=== PATIENT | male | born 1960 | race Caucasian/White ===

== ENCOUNTER → 2016-08-08 | Outpatient (CLI) | payer MEDICAID ==
[~2016-08-08] MED LIST: ALBUTEROL0.09 MG/A2 INH; AMLODIPINE BESYL5 MG PO; AMOXICILLIN500 M2 PO; AMOXICILLIN500 MG PO; ANAPROX DS550 MG PO; ANUSOL-HC25 MG RC; ASPIRIN81 M1 PO; ASPRIN PO; AUGMENTIN 875 M1 TAB PO; BP MED; CLARITIN-D 12 H1 TAB PO; COLACE100 MG PO; COUMADIN5 M2 PO; CYCLOBENZAPRINE5 M3 PO; DILTIAZEM120 MG PO; DILTIAZEM240 M1 PO; DILTIAZEM30 MG PO; FLEXERIL10 MG PO; HYDROCODONE BIT1 T11 PO; IMDUR SA60 M1 PO; IMDUR30 MG PO; KEFLEX500 M1 PO; KENALOG 0.5% OI15 GM PO; LISINOPRIL HCTZ1 TA1 PO; LISINOPRIL HCTZ1 TAB PO; LISINOPRIL10 MG PO; MEDROL DOSEPAK4 MG PO; MIDRIN (DURADR1 CAP PO; MOTRIN800 MG PO; NAPROSYN500 MG PO; NEXIUM20 MG PO; NITROSTAT0.4 MG SL; NKHM; PERCOCET 325 MG1 TA2 PO; PREDNICOT20 MG PO; PREDNISONE20 MG PO; PRILOSEC40 M1 PO; PROCTOFOAM 1%10 G1 PO; PROVENTIL0.09 MG/AC INH; RANEXA500 MG PO; SIMVASTATIN20 MG PO; SIMVASTATIN40 MG PO; TESSALON PERLE100 M1 PO; TESSALON PERLE200 MG PO; VIBRAMYCIN100 MG PO; VICODIN 5/500 505 MG PO; VICODIN ES 7501 TAB PO; VISTARIL25 M2 PO; VITAMIN D-32000 UNI1 PO; ZITHROMAX Z PA250 MG PO; ZOCOR20 MG PO
== END | disposition home or self-care (01) ==
LOC: RAD 15:48
DX: I10 Essential (primary) hypertension (principal); Z72.0 Tobacco use

== ENCOUNTER 2016-08-19 19:18 | Emergency (ER) | payer MEDICAID ==
[~2016-08-19] VITALS: Ht 177.8 cm; Wt 52.2 kg
[2016-08-19] MEDS ORDERED: IMDUR SA60 MG PO (19:23)
[2016-08-19] MEDS ORDERED: NAPROSYN500 MG PO (19:26)
== END 2016-08-19 19:57 | disposition home or self-care (01) ==
LOC: ED 19:18
DX: M79.641 Pain in right hand (principal); R03.0 Elevated blood-pressure reading, without diagnosis of hypertension; F17.200 Nicotine dependence, unspecified, uncomplicated; I10 Essential (primary) hypertension; E78.5 Hyperlipidemia, unspecified; F41.9 Anxiety disorder, unspecified; I25.10 Atherosclerotic heart disease of native coronary artery without angina pectoris; F32.9 Major depressive disorder, single episode, unspecified; I25.2 Old myocardial infarction; Z79.82 Long term (current) use of aspirin

== ENCOUNTER → 2016-08-29 | Outpatient (CLI) | payer MEDICAID ==
[~2016-08-29] MED LIST changes: +IMDUR SA60 MG PO; +VITAMIN D5000 UNI1 PO
--- NOTE | ~2016-08-29 | ST ---
[place], [place] EXERCISE STRESS TEST REPORT NAME: SARA CHERRY UNIT #: [id number] ROOM: DOCTOR: MIRNA STEVENS MD BIRTHDATE: [birth year] DOS: 08/29/2016 INDICATIONS: Precordial chest pain. PHARMACOLOGICAL STRESS TEST: The patient was given Lexiscan 0.4 mg over 10 seconds followed by nuclear injection at 40 seconds followed by 2 minutes of recovery. Test was terminated due to completion. Performance baseline heart rate was 64, blood pressure 154/86. At 2 minutes, heart rate was 88, blood pressure 154/72. EKG response baseline normal sinus rhythm. Stress EKG, no ST changes. CLINICAL RESPONSE: Warm feeling and nausea and headache. INTERPRETATION: 1. Negative Lexiscan stress test. 2. Wait for Cardiolite images for full report. MIRNA STEVENS MD CM:STRESS:EXERCISE STRESS TEST REPORT [id number] MIRNA STEVENS MD
== END | disposition home or self-care (01) ==
LOC: CARD 02:59
DX: R07.2 Precordial pain (principal); R53.81 Other malaise

== ENCOUNTER 2016-10-25 13:04 | Emergency (ER) | payer OTHER ==
[~2016-10-25] VITALS: Ht 177.8 cm; Wt 56.7 kg
[2016-10-25] MEDS ORDERED: CLEOCIN150 MG PO (13:24)
== END 2016-10-25 13:35 | disposition home or self-care (01) ==
LOC: ED 13:04
DX: K04.7 Periapical abscess without sinus (principal); F17.200 Nicotine dependence, unspecified, uncomplicated; I25.10 Atherosclerotic heart disease of native coronary artery without angina pectoris; J44.9 Chronic obstructive pulmonary disease, unspecified; E78.5 Hyperlipidemia, unspecified; I10 Essential (primary) hypertension; I25.2 Old myocardial infarction; E55.9 Vitamin D deficiency, unspecified; Z98.890 Other specified postprocedural states; Z79.82 Long term (current) use of aspirin; Z79.899 Other long term (current) drug therapy

== ENCOUNTER 2016-11-29 05:31 | Emergency (ER) | payer OTHER ==
[~2016-11-29] VITALS: Wt 56.7 kg
[~2016-11-29 05:31] MED LIST changes: +CLEOCIN150 MG PO
[2016-11-29 06:19] LABS: BASO % 0.5 % (0.0-1.0); EOS # 0.2 10*3/uL (0.0-0.4); EOS % 3.3 % (1.0-4.0); HEMATOCRIT 40.8 % (42.0-52.0); HEMOGLOBIN 13.7 g/dl (14.0-18.0); LYMPH # 1.9 10*3/uL (1.3-4.4); LYMPH % 28.9 % (27.0-41.0); MEAN CELL VOLUME 92.3 fl (80.0-94.0); MEAN CORPUSCULAR HGB CONC 33.6 g/dl (33.0-37.0); MEAN PLATELET VOLUME 9.3 fl (9.6-12.3); MONO # 0.6 10*3/uL (0.1-1.0); MONO % 9.5 % (3.0-9.0); NEUT # 3.8 10*3/uL (2.3-7.9); NEUT % 57.6 % (47.0-73.0); PLATELET COUNT AUTOMATED 217 10*3/uL (130-400); RED BLOOD COUNT 4.42 10*6/uL (4.50-5.90); RED CELL DISTRI WIDTH 13.7 % (0-14.5); WHITE BLOOD COUNT 6.6 10*3/uL (4.8-10.8)
[2016-11-29 06:29] LABS: ALBUMIN 3.2 gm/dl (3.1-4.5); ALKALINE PHOSPHATASE 77 U/L (45-117); BILIRUBIN, TOTAL 0.4 mg/dl (0.2-1.0); BUN 12 mg/dl (7-24); CARBON DIOXIDE 26 mmol/L (21-32); CHLORIDE 110 mmol/L (98-107); EST GLOM FILT AFRICAN AMERICAN > 60 ml/min; GLUCOSE 110 mg/dL (65-99); MAGNESIUM 1.8 mg/dL (1.5-2.1); POTASSIUM 3.5 mmol/L (3.5-5.1); SGOT/AST 16 IU/L (3-35); SGPT/ALT 17 U/L (12-78); SODIUM 144 mmol/L (136-145); TOTAL PROTEIN 6.8 gm/dL (6.4-8.2)
[2016-11-29 06:31] LABS: C-REACTIVE PROTEIN < 0.29 MG/DL (0-0.3); TROPONIN I < 0.015 ng/ml (<0.045)
[2016-11-29] MEDS ORDERED: LOMOTIL 0.025 M1 TA1 PO (06:52)
[2016-11-29] MEDS ORDERED: ZOFRAN ODT4 MG SL (06:52)
== END 2016-11-29 16:25 | disposition home or self-care (01) ==
LOC: ED 05:31
PROVIDERS: Emergency Medicine Emergency Medical Services
DX: K52.9 Noninfective gastroenteritis and colitis, unspecified (principal); M79.89 Other specified soft tissue disorders; I25.10 Atherosclerotic heart disease of native coronary artery without angina pectoris; J44.9 Chronic obstructive pulmonary disease, unspecified; E78.5 Hyperlipidemia, unspecified; I10 Essential (primary) hypertension; I25.2 Old myocardial infarction; Z79.82 Long term (current) use of aspirin; Z79.899 Other long term (current) drug therapy; Z87.891 Personal history of nicotine dependence

== ENCOUNTER 2016-12-04 05:49 | Emergency (ER) | payer OTHER ==
[~2016-12-04] VITALS: Ht 177.8 cm; Wt 56.7 kg
[~2016-12-04 05:49] MED LIST changes: +LOMOTIL 0.025 M1 TA1 PO; +ZOFRAN ODT4 MG SL
[2016-12-04 06:25] LABS: BASO % 0.4 % (0.0-1.0); EOS # 0.2 10*3/uL (0.0-0.4); EOS % 2.6 % (1.0-4.0); HEMATOCRIT 39.1 % (42.0-52.0); HEMOGLOBIN 13.2 g/dl (14.0-18.0); LYMPH # 2.1 10*3/uL (1.3-4.4); LYMPH % 26.7 % (27.0-41.0); MEAN CELL VOLUME 93.3 fl (80.0-94.0); MEAN CORPUSCULAR HGB 31.5 pg (27.0-31.0); MEAN CORPUSCULAR HGB CONC 33.8 g/dl (33.0-37.0); MEAN PLATELET VOLUME 9.2 fl (9.6-12.3); MONO # 0.7 10*3/uL (0.1-1.0); MONO % 9.4 % (3.0-9.0); NEUT # 4.7 10*3/uL (2.3-7.9); NEUT % 60.8 % (47.0-73.0); PLATELET COUNT AUTOMATED 205 10*3/uL (130-400); RED BLOOD COUNT 4.19 10*6/uL (4.50-5.90); WHITE BLOOD COUNT 7.7 10*3/uL (4.8-10.8)
[2016-12-04 06:40] LABS: BUN 25 mg/dl (7-24); CARBON DIOXIDE 26 mmol/L (21-32); CHLORIDE 109 mmol/L (98-107); EST GLOM FILT AFRICAN AMERICAN > 60 ml/min; GLUCOSE 108 mg/dL (65-99); POTASSIUM 3.8 mmol/L (3.5-5.1); SODIUM 142 mmol/L (136-145)
[2016-12-04 06:42] LABS: C-REACTIVE PROTEIN < 0.29 MG/DL (0-0.3)
== END 2016-12-04 09:31 | disposition home or self-care (01) ==
LOC: ED 05:49
PROVIDERS: Emergency Medicine Emergency Medical Services
DX: R51 Headache (principal); I25.10 Atherosclerotic heart disease of native coronary artery without angina pectoris; I10 Essential (primary) hypertension; J44.9 Chronic obstructive pulmonary disease, unspecified; E78.5 Hyperlipidemia, unspecified; I25.2 Old myocardial infarction; Z79.82 Long term (current) use of aspirin; Z79.899 Other long term (current) drug therapy; Z87.891 Personal history of nicotine dependence

== ENCOUNTER 2016-12-16 20:34 | Emergency (ER) | payer OTHER ==
[~2016-12-16] VITALS: Ht 175.2 cm; Wt 93.0 kg
--- NOTE | ~2016-12-16 | EKG ---
[place], [place] ELECTROCARDIOGRAM REPORT NAME: SARA CHERRY UNIT #: [id number] ROOM: DOCTOR: MIRNA STEVENS MD BIRTHDATE: [birth year] DOS: 12/16/2016 TIME: 20:59:22/ RATE AND RHYTHM: Normal sinus rhythm at 73 beats per minute. IA interval is 146 milliseconds, QRS duration is 83 milliseconds. Corrected QT interval is 405 milliseconds, QRS axis is 84. IMPRESSION: 1. Normal sinus rhythm. 2. Nonspecific T-wave changes. 3. T-wave inversion in V1 and V2. 4. Septal ischemia should be ruled out. 5. No old EKG to compare with. MIRNA STEVENS MD CM:EKGRPT:ELECTROCARDIOGRAM REPORT [id number] MIRNA STEVENS MD
[2016-12-16] MEDS ORDERED: CYCLOBENZAPRINE10 MG PO (22:07)
== END 2016-12-16 22:09 | disposition home or self-care (01) ==
LOC: ED 20:34
DX: M25.512 Pain in left shoulder (principal); I10 Essential (primary) hypertension; F17.200 Nicotine dependence, unspecified, uncomplicated; Z79.82 Long term (current) use of aspirin; Z79.899 Other long term (current) drug therapy

== ENCOUNTER 2017-01-17 19:18 | Emergency (ER) | payer OTHER ==
[~2017-01-17] VITALS: Ht 177.8 cm; Wt 56.7 kg
[~2017-01-17 19:18] MED LIST changes: +CYCLOBENZAPRINE10 MG PO
[2017-01-17] MEDS ORDERED: Orphenadrine C100 MG PO (20:30)
[2017-01-17] MEDS ORDERED: PREDNISONE20 M1 PO (20:30)
[2017-01-17] MEDS ORDERED: ULTRAM50 MG PO (20:30)
== END 2017-01-17 23:20 | disposition home or self-care (01) ==
LOC: ED 19:18
DX: M54.12 Radiculopathy, cervical region (principal); F17.200 Nicotine dependence, unspecified, uncomplicated; J44.9 Chronic obstructive pulmonary disease, unspecified; E78.5 Hyperlipidemia, unspecified; I10 Essential (primary) hypertension; I25.2 Old myocardial infarction; Z98.890 Other specified postprocedural states; Z79.899 Other long term (current) drug therapy; Z79.82 Long term (current) use of aspirin

== ENCOUNTER 2017-02-06 15:55 | Emergency (ER) | payer OTHER ==
[~2017-02-06] VITALS: Ht 177.8 cm; Wt 55.3 kg
[~2017-02-06 15:55] MED LIST changes: +Orphenadrine C100 MG PO; +PREDNISONE20 M1 PO; +ULTRAM50 MG PO
[2017-02-06] MEDS ORDERED: AUGMENTIN 875875 MG PO (17:36)
[2017-02-06] MEDS ORDERED: MEDROL DOSEPAK4 MG PO (17:36)
[2017-02-06] MEDS ORDERED: PROAIR HFA8.5 GM INH (17:36)
== END 2017-02-06 19:38 | disposition home or self-care (01) ==
LOC: ED 15:55
DX: J44.9 Chronic obstructive pulmonary disease, unspecified (principal); J01.00 Acute maxillary sinusitis, unspecified; F17.200 Nicotine dependence, unspecified, uncomplicated; I10 Essential (primary) hypertension; E78.5 Hyperlipidemia, unspecified; I25.10 Atherosclerotic heart disease of native coronary artery without angina pectoris; Z79.82 Long term (current) use of aspirin

== ENCOUNTER 2017-02-12 16:40 | Inpatient (IN) | payer OTHER ==
[~2017-02-12] VITALS: Ht 177.8 cm; Wt 52.7 kg
--- NOTE | ~2017-02-12 | EKG ---
[place], [place] ELECTROCARDIOGRAM REPORT NAME: SARA CHERRY UNIT #: [id number] ROOM: 403 DOCTOR: MIRNA STEVENS MD BIRTHDATE: [birth year] DOS: 02/12/2017 TIME: 17:11:47. RATE AND RHYTHM: Normal sinus rhythm at 79 beats per minute. WY interval 131 milliseconds, QRS duration 83 milliseconds, corrected QT interval 407 milliseconds, QRS axis is 83. IMPRESSION: Normal sinus rhythm and nonspecific T-wave abnormalities in anterolateral leads with ST elevation in V2-V6, most probably early repolarization. Hyperacute T waves are noted in V3-V5. This is abnormal EKG. Clinical correlation is needed. MIRNA STEVENS MD CM:EKGRPT:ELECTROCARDIOGRAM REPORT [id number] MIRNA STEVENS MD
--- NOTE | ~2017-02-12 | PR ---
[place], [place] PROGRESS NOTE NAME: SARA CHERRY UNIT #: [id number] ROOM: 403 DOCTOR: KHUSHI VILLA DO BIRTHDATE: [birth year] DOS: 02/16/2017 SUBJECTIVE: The patient was seen and evaluated this morning with Dr. Pruitt. The patient is alert, awake and responsive. The patient denies any lightheadedness, diarrhea, dizziness or chest pain. The patient says that he is mildly short of breath when he coughs. The patient is n.p.o. because of scheduled bronch this morning. OBJECTIVE: VITAL SIGNS: Temperature 98, pulse 96, respiratory rate 22, blood pressure 185/80, bedside pulse ox 98 on face mask. HEENT: Shows no changes. NECK: Supple. CARDIOVASCULAR: S1, S2 audible. LUNGS: Generalized reduction of breath sound at the bases with mild expiratory wheezing. MUSCULOSKELETAL: Did not show any deformities. SKIN: Shows no lesions. LABORATORY DATA: White cell count of 14.7, hemoglobin 13, platelets 245, BUN 28, creatinine 0.99. Microbiology from bronch culture today is pending. ASSESSMENT: 1. Acute exacerbation of chronic obstructive pulmonary disease. 2. Bullous emphysema in the upper lung and chronic nicotine dependence. 3. Musculoskeletal chest pain secondary to excessive nonproductive cough. 4. Weight loss. PLAN OF TREATMENT: 1. The patient has had bronch this morning showed mucus plug and tracheobronchitis. 2. Continue Solu-Medrol 125 b.i.d. 3. Continue Rocephin, doxycycline, DuoNeb treatments. 4. Supportive care. 5. Tobacco cessation. KHUSHI VILLA DO [place], [place] PROGRESS NOTE NAME: SARA CHERRY UNIT #: [id number] ROOM: 403 DOCTOR: KHUSHI VILLA DO BIRTHDATE: [birth year] NEREIDA PRUITT MD CM:PNTRANS [id number] KHUSHI VILLA DO 02/16/17 1344 interface
--- NOTE | ~2017-02-12 | EKG ---
[place], [place] ELECTROCARDIOGRAM REPORT NAME: SARA CHERRY UNIT #: [id number] ROOM: 403 DOCTOR: MIRNA STEVENS MD BIRTHDATE: [birth year] DOS: 02/12/2017 TIME: 17:11:47. RATE AND RHYTHM: Normal sinus rhythm at 79 beats per minute. TN interval 131 milliseconds, QRS duration 83 milliseconds, corrected QT interval 407 milliseconds, QRS axis is 83. IMPRESSION: 1. Normal sinus rhythm. 2. Nonspecific T-wave abnormalities in anterolateral leads. 3. T-wave inversion noted in V1 and V2. 4. No old EKG to compare with. MIRNA STEVENS MD CM:EKGRPT:ELECTROCARDIOGRAM REPORT [id number] MIRNA STEVENS MD
--- NOTE | ~2017-02-12 | PR ---
[place], [place] PROGRESS NOTE NAME: SARA CHERRY UNIT #: [id number] ROOM: 403 DOCTOR: NEREIDA JO MD BIRTHDATE: [birth year] DOS: 02/16/2017 SUBJECTIVE: The patient was seen and examined today independently with [id number] encounter. Physical examination performed, history was confirmed with any changes in the management were personally made. The assessment was personally done as well, known by the medical staff manager was approved. The patient was currently noted n.p.o. past midnight for bronchoscopy, which is planned to be done today. He has not been noted any changes in the respiratory symptoms continue as severe cough, which remained nonproductive with pain under the ribcage. PHYSICAL EXAMINATION: VITAL SIGNS: Reviewed for the patient was essentially noted as a normal temperature with a respiratory rate 20, heart rate 88, blood pressure 139/88, pulse oxygen saturation was noted as 95% on room air. LUNGS: Noted with severe diminished breath sounds bilaterally with scattered expiratory wheezing. ABDOMEN: Soft, nontender. LABORATORY DATA: CMP this morning, BUN 28, creatinine was normal. CBC of this morning, WBC count 14.7, hemoglobin 13, hematocrit 38.3, platelet count was normal. IMPRESSION: 1. The patient who has been noted with musculoskeletal chest pain ongoing severe exacerbation. 2. Chronic obstructive pulmonary disease. 3. Acute tracheobronchitis on maximum medical therapy remained symptomatic with ineffective sputum expectoration with the severe cough. Wheezing was also noted with shortness of breath. PLAN OF TREATMENT: Proceed with the bronchoscopy as planned for this patient. Any changes in the treatment if necessary will be done after bronchoscopy. Continuation of steroids, bronchodilators and other treatment as previously ongoing. [place], [place] PROGRESS NOTE NAME: SARA CHERRY UNIT #: [id number] ROOM: 403 DOCTOR: NEREIDA JO MD BIRTHDATE: [birth year] NEREIDA PRUITT MD CM:PNTRANS [id number] NEREIDA TOUSSAINT MD 02/17/17 0039 interface
--- NOTE | ~2017-02-12 | PROC NOTE ---
[place], [place] PROCEDURE NOTE NAME: SARA CHERRY UNIT #: [id number] ROOM: 403 DOCTOR: EDMOND TOUSSAINT MD,NEREIDA BIRTHDATE: [birth year] DOS: 02/16/2017 PREOPERATIVE DIAGNOSES: Severe ineffective cough for this patient to expectorate sputum with ongoing wheezing and cough with maximum medical therapy. POSTOPERATIVE DIAGNOSIS: Removal of very thick plugs of mucus from the endobronchial tree bilaterally. There were no endobronchial obstructive lesions. FINDINGS: Acute tracheobronchitis. PROCEDURE DESCRIPTION: Informed consent obtained for the patient. The patient was brought to the OR and placed in supine position. Conscious sedation administered by the Anesthesia Department. After achieving appropriate sedation, airway was introduced into the mouth. Bronchoscope was advanced into the airway into laryngeal area. Epiglottis and vocal cords were seen. The vocal cords were moving symmetrically with the movement. The bronchoscope was advanced to the vocal cord and tracheal lumen noted very thick secretions of the mucus with small purulent secretions suctioned out to the jose level. Right upper, right middle, right lower, left upper, lingula and lower lobe bronchi were all examined. Thick plugs of mucus was present in the endobronchial tree bilaterally, very tenacious secretions. All the secretions were suctioned out clear with the help of normal saline wash and sent for cultures. Procedure was well tolerated by the patient without any difficulty. Postoperative findings were discussed with the patient's in the recovery room after completion of the procedure. No changes in treatment at this time will be necessary after bronchoscopy. NEREIDA PRUITT MD CM:PROCNOTE:PROCEDURE NOTE [id number] 0046 NEREIDA TOUSSAINT MD
--- NOTE | ~2017-02-12 | CON ---
[place], [place] REPORT OF CONSULTATION NAME: SARA CHERRY UNIT #: [id number] ROOM: 403 DOCTOR: KHUSHI VILLA DO BIRTHDATE: [birth year] DOS: 02/15/2017 REASON FOR CONSULTATION: Persistent dry cough. Dr. Shaikh's service. CHIEF COMPLAINT: Dry cough. HISTORY OF PRESENT ILLNESS: This is a 56-year-old male presented to [facility] with worsening of dry cough for 2 weeks. The patient has a history of COPD. He does not use home oxygen. He states that his shortness of breath is unchanged from his baseline. Denies any fever, chills or chest pain. He said this has been going on for about 2 weeks and he feels that he might have catch cold. He has been coughing, but he is not able to bring anything up. The patient has taken Augmentin and Levaquin and had no relief with of symptoms. The patient denies any other complaints at this time. PAST MEDICAL HISTORY: Anxiety, bronchitis, coronary artery disease, cervical radiculopathy, COPD, degenerative disk disease, hyperlipidemia, hypertension, normocytic anemia, prediabetes, tobacco abuse, external hemorrhoids. PAST SURGICAL HISTORY: Back surgery, radiofrequency ablation surgery. SOCIAL HISTORY: Alcohol drinker socially; smoked about 2 packs per day, currently smoking 10 cigarettes per day; does not use any illicit drugs. FAMILY HISTORY: Father because of laryngeal cancer. Mother was because of cardiac abnormality. ALLERGIES: COUGH SYRUP. HOME MEDICATIONS: Reported are ProAir HFA, Augmentin, aspirin, vitamin D, cyclobenzaprine, Imdur, lisinopril, Nitrostat, prednisone, Ranexa, Zocor. REVIEW OF SYSTEMS: CONSTITUTIONAL: Reports night sweats. Denies any fever, chills, nausea, vomiting. HEENT: Reports throat pain, dysphagia. Denies vision changes, blurred vision or nose congestion. CARDIOVASCULAR: Denies chest pain, palpitations. RESPIRATORY: Denies shortness of breath, cough, dyspnea on exertion or any hemoptysis. ABDOMINAL: Denies abdominal pain, nausea, vomiting, diarrhea, constipation, melena. GENITOURINARY: Denies dysuria, hematuria, increase or decrease in frequency. NEUROLOGIC: Denies lightheadedness, dizziness, confusion. PSYCHIATRIC: Denies depression, anxiety. ENDOCRINE: Denies polydipsia, cold intolerance or heat intolerance. EXTREMITIES: Denies new rash, lesions or ulcers. [place], [place] REPORT OF CONSULTATION NAME: SARA CHERRY UNIT #: [id number] ROOM: 403 DOCTOR: KHUSHI VILLA DO BIRTHDATE: [birth year] PHYSICAL EXAMINATION: VITAL SIGNS: Temperature 97.5, pulse 80, respiratory rate 18, blood pressure 145/65, pulse ox is 98 on room air. GENERAL: Awake, alert, no acute distress. HEAD: Normocephalic, atraumatic. EYES: No lesion, no ulceration, nonicteric. ENT: No scars, no mass. Oral mucosa and nasal mucosa are moist. NECK: Without lesions, masses. Trachea midline. RESPIRATORY: No respiratory distress. Cough. Clear to auscultation. No wheezing, rales or rhonchi heard. CARDIOVASCULAR: Rate regular rhythm. No murmur or gallop. ABDOMEN: Soft, nontender, nondistended, positive bowel sounds. No rigidity or guarding. EXTREMITIES: No clubbing, no cyanosis, no erythema, no edema. NEUROLOGIC: Grossly intact without focal neurological deficits. PSYCHOLOGIC: Good historian. Fair judgment, fair insight. SKIN: Warm and dry. LABORATORY DATA: White cell count 13.8, hemoglobin 13.2, platelets 245. BUN 20, creatinine 0.88. IMAGING: Chest x-ray on 02/12/2017 showed hyperinflation without focal infiltrate, edema or effusion. 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 No lymphadenopathy. Severe bullous emphysema with large bulla in the lung apices, right greater than the left. Chest CT on 02/13/2017 showed emphysematous changes. Chest x-ray on 02/13/2017 showed hyperinflation, chronic obstructive pulmonary disease. No edema or lung consolidation. Rib x-ray on 02/14/2017 showed no fractures of the ribs. ASSESSMENT AND PLAN: 1. Please see Dr. Pruitt's note for further assessment and plan. 2. Plan for bronchoscopy tomorrow. KHUSHI VILLA DO [place], [place] REPORT OF CONSULTATION NAME: SARA CHERRY UNIT #: [id number] ROOM: 403 DOCTOR: KHUSHI VILLA DO BIRTHDATE: [birth year] NEREIDA PRUITT MD CM:CONSTR:REPORT OF CONSULTATION 1339 02/15/17 1437 interface
--- NOTE | ~2017-02-12 | CON ---
[place], [place] REPORT OF CONSULTATION NAME: SARA CHERRY UNIT #: [id number] ROOM: 403 DOCTOR: EDMOND TOUSSAINT MDNEREIDA BIRTHDATE: [birth year] DOS: 02/15/2017 The consultation requested for this patient by Dr. Chandra Shaikh. REASON FOR CONSULTATION: To assess the patient for ongoing acute nonresolving respiratory symptoms and chest pain. HISTORY OF PRESENT ILLNESS: A 56-year-old white male patient who has been admitted under care of Dr. Chandra Shaikh on 02/12/2017. The patient has been admitted to the hospital as he developed symptoms of increased shortness of breath associated with progressive dry cough. The symptoms have been present for 2 weeks and not resolving at home. The patient denies any symptoms of hemoptysis. He has been noted unintentional 6-pound weight loss. Shortness of breath occurring with mild to moderate exertional activity associated with wheezing and chest tightness. He was also complaining of pain in the left side of the chest, described moderate to severe at times, worsened with deep breathing and inspiratory efforts. He was also complaining of raspiness of the voice as well. He has been currently getting treated for the acute exacerbation of chronic obstructive pulmonary disease. The patient continued to have symptoms of cough, which has been noted, nonproductive most of the time and noted intermittently moderate to severe. REVIEW OF SYSTEMS: Has been done by the senior medical technologist. PAST MEDICAL HISTORY: 1. The patient was noted with history of chronic obstructive pulmonary disease. 2. Essential hypertension. 3. Hyperlipidemia. 4. Degenerative disk disease of the spine. 5. History of coronary artery disease. 6. General anxiety disorder. 7. Pre-diabetic state. 8. Tobacco dependence. 9. Vitamin D deficiency. PAST SURGICAL HISTORY: 1. The patient was noted to have had radioablation frequency of the atrial tract. 2. Cervical laminectomy. SOCIAL HISTORY: The patient stated that he lives at home. History of tobacco use was noted since teenager up to 2 packs and currently smoking half a pack of cigarettes per day until hospitalization. Denies any alcohol, illicit drug use or any tobacco use as well as any occupation related pulmonary exposure history. FAMILY HISTORY: Reported his father of complications related to laryngeal cancer. Mother related to heart problems and myocardial infarction. HOME MEDICATIONS: Noted use of Augmentin, ProAir, aspirin, vitamin D, Flexeril, Imdur, lisinopril, hydrochlorothiazide, Nitrostat, prednisone, and Zocor. [place], [place] REPORT OF CONSULTATION NAME: SARA CHERRY UNIT #: [id number] ROOM: 403 DOCTOR: NEREIDA JO MD BIRTHDATE: [birth year] DRUG ALLERGY HISTORY: ROBITUSSIN, APHE-LYF-JUNDSOX COUGH MEDICATION CAUSING VOMITING. PHYSICAL EXAMINATION: GENERAL: This is a 56-year-old white male who has been currently noted to be awake and alert without any acute distress at time of the assessment. VITAL SIGNS: Height of 5 feet 10 inches, weight 116 pounds, BMI 16.6. Vital signs of the patient which was recorded shows temperature noted normal, respirations 18-20, heart rate of 80-73, blood pressure 157/88 and 138/80. Pulse oxygen saturation of the patient on room air was noted 97% saturation. HEENT: Head was atraumatic. Eyes nonicterus. NECK: Supple. CARDIOVASCULAR: S1, S2 audible. LUNGS: Generalized reduction of the breath sounds were noted in the lungs bilaterally with expiratory wheezing. ABDOMEN: Soft, flat, nontender, bowel sounds present. EXTREMITIES: Does not show any edema, clubbing, cyanosis. CENTRAL NERVOUS SYSTEM: Noted cranial nerves 2-12 intact. No focal deficit. MUSCULOSKELETAL: Does not show any acute deformities. SKIN: No lesions or rashes. LABORATORY DATA: CBC yesterday, WBC count 13.8, hemoglobin 13.2, hematocrit 38.9, platelet count was normal. BMP of the patient of 02/14/2017, essentially noted normal except glucose mildly elevated at 134. Chest x-ray of the patient that was done on admission 02/12/2017 review shows severe COPD changes, the patient was noted with hyperinflation and emphysema. A CT scan of the chest was done for the patient on 02/13/2017, was personally reviewed, it shows evidence of bullous emphysema changes noted in the upper lobe, greater on the right than the left side. There was no abnormal nodule, no lymphadenopathy noted in the mediastinum. The patient had a CT scan of the soft tissue of the neck, was also done because of the hoarseness, which has been described by the radiology report as findings of possibility of laryngocele was described on the left side, measured as 1.7 x 1 x 2 cm in size. It could be postsurgical changes as stated by the radiologist. There was no lymphadenopathy. The patient's solid masses were described for this patient in the neck area. Cervical disk disease; the patient described at different levels. Troponin for the patient, which were done on the and were all noted as normal. The patient has a left rib series x-ray done yesterday as well, does not show any rib fractures. Alpha 1 antitrypsin level was noted normal. There were no phenotype available or done. IMPRESSION: 1. The patient who has been currently admitted to the hospital. The patient noted with ongoing acute exacerbation of chronic obstructive pulmonary disease as evidence of bullous emphysema in the upper lungs is chronic nicotine dependence. 2. Musculoskeletal chest pain secondary to excessive nonproductive cough for the patient's, inability to clear secretions. 3. Weight loss. The patient noted recently about 6 pounds, etiology remains unclear at this time. There was no evidence of any malignant process at least [place], [place] REPORT OF CONSULTATION NAME: SARA CHERRY UNIT #: [id number] ROOM: 403 DOCTOR: GURJIT JO MDM BIRTHDATE: [address] scan of the chest. Some abnormality described CT scan of the soft tissue neck, the significance to me is unknown, may require further assessment by the ENT specialist. PLAN AND RECOMMENDATIONS: The patient is already getting intravenous Solu-Medrol 125 mg b.i.d. The patient's symptoms have not been improving. Musculoskeletal chest pain to be treated with pain medications. The patient will get the benefit from fibrobronchoscopy to clear the mucus plugs of the airways, which has not resolved for this patient at this time with excessive severe cough. The bronchodilator for this patient to be continued as previously ordered every 4 hours. Continue use of the flutter valve for this patient to help clear the secretions. The risks and benefits of procedure have been discussed with the patient. Tobacco cessation should be done by the patient to prevent the progression of the current emphysematous changes in the lungs. Other additional treatment changes to be made to treatment based on progression of the illness. The patient is already getting the Mucinex 1200 mg p.o. b.i.d. NEREIDA PRUITT MD CM:CONSTR:REPORT OF CONSULTATION 1315 02/16/17 0456 interface
[~2017-02-12 16:40] MED LIST changes: +AUGMENTIN 875875 MG PO; +PROAIR HFA8.5 GM INH
[2017-02-12 16:57] VITALS: BP 153/90
[2017-02-12 17:20] LABS: BASO % 0.2 % (0.0-1.0); EOS % 0.1 % (1.0-4.0); HEMOGLOBIN 14.3 g/dl (14.0-18.0); LYMPH # 1.3 10*3/uL (1.3-4.4); MEAN CELL VOLUME 93.5 fl (80.0-94.0); MEAN CORPUSCULAR HGB 31.1 pg (27.0-31.0); MEAN CORPUSCULAR HGB CONC 33.3 g/dl (33.0-37.0); MEAN PLATELET VOLUME 9.4 fl (9.6-12.3); MONO # 0.3 10*3/uL (0.1-1.0); MONO % 2.9 % (3.0-9.0); NEUT # 9.5 10*3/uL (2.3-7.9); NEUT % 84.2 % (47.0-73.0); PLATELET COUNT AUTOMATED 254 10*3/uL (130-400); RED CELL DISTRI WIDTH 14.3 % (0-14.5); WHITE BLOOD COUNT 11.2 10*3/uL (4.8-10.8)
[2017-02-12 17:29] LABS: ACT PARTIAL THROMBO TIME 23.9 SECONDS (20.8-31.5)
[2017-02-12 17:36] LABS: ALBUMIN 3.5 gm/dl (3.1-4.5); ALKALINE PHOSPHATASE 84 U/L (45-117); BUN 18 mg/dl (7-24); CHLORIDE 107 mmol/L (98-107); LIPASE 169 U/L (73-393); MAGNESIUM 2.1 mg/dL (1.5-2.1); POTASSIUM 4.1 mmol/L (3.5-5.1); SGOT/AST 19 IU/L (3-35); SGPT/ALT 24 U/L (12-78); SODIUM 141 mmol/L (136-145); TOTAL PROTEIN 7.2 gm/dL (6.4-8.2)
[2017-02-12 17:37] LABS: TROPONIN I < 0.015 ng/ml (<0.045)
--- NOTE | 2017-02-12 18:30 | NUR ---
ALL TESTING HAS RETURNED, AWAITING PLAN OF CARE DECISION.
[2017-02-12 18:50] VITALS: BP 144/79
--- NOTE | 2017-02-12 19:11 | NUR ---
PT REPORT ACCEPTED FROM PREVIOUS RN. PENDING ADMISSION, WAITING FOR BED ASSIGNMENT. NO ACUTE DISTRESS
[2017-02-12 19:33] VITALS: BP 144/78
--- NOTE | 2017-02-12 19:41 | NUR ---
REPORT GIVEN. PT STABLE AND READY FOR TRANSPORT TO
[2017-02-12 19:50] VITALS: BP 156/94
--- NOTE | 2017-02-12 19:50 | NUR ---
Time: 1947 A 56 year old MALE admitted to 4E under services of DR. HILDA DUPONT,[facility]. Pt. arrived via bed from ER. Chief complaint: HARSH COUGH 2 WEEKS. BRANDI RESTREPO
--- NOTE | 2017-02-12 19:50 | NUR ---
PATIENTS [facility] REC REVIEWED WITH THE PATIENT.
[2017-02-13] VITALS: BP 150/76
[2017-02-13 06:16] LABS: BASO % 0.1 % (0.0-1.0); HEMATOCRIT 41.3 % (42.0-52.0); LYMPH % 8.3 % (27.0-41.0); MEAN CELL VOLUME 94.7 fl (80.0-94.0); MEAN CORPUSCULAR HGB 32.1 pg (27.0-31.0); MEAN CORPUSCULAR HGB CONC 33.9 g/dl (33.0-37.0); MEAN PLATELET VOLUME 9.8 fl (9.6-12.3); MONO # 0.6 10*3/uL (0.1-1.0); MONO % 4.6 % (3.0-9.0); NEUT # 10.5 10*3/uL (2.3-7.9); NEUT % 86.4 % (47.0-73.0); PLATELET COUNT AUTOMATED 247 10*3/uL (130-400); RED BLOOD COUNT 4.36 10*6/uL (4.50-5.90); RED CELL DISTRI WIDTH 14.2 % (0-14.5); WHITE BLOOD COUNT 12.1 10*3/uL (4.8-10.8)
[2017-02-13 06:47] LABS: ALBUMIN 3.1 gm/dl (3.1-4.5); ALKALINE PHOSPHATASE 77 U/L (45-117); BUN 22 mg/dl (7-24); CHLORIDE 110 mmol/L (98-107); CREATININE 0.91 mg/dL (0.70-1.30); MAGNESIUM 2.1 mg/dL (1.5-2.1); PHOSPHOROUS 3.7 mg/dL (2.5-4.9); SGOT/AST 14 IU/L (3-35); SGPT/ALT 21 U/L (12-78); SODIUM 144 mmol/L (136-145); TOTAL PROTEIN 6.5 gm/dL (6.4-8.2)
[2017-02-13 08:00] VITALS: BP 136/72
--- NOTE | 2017-02-13 09:33 | NUR ---
22G STARTED IN PATIENT'S LEFT FOREARM PER REQUEST. SAID IV IN RAC WAS HURTING AND HE WANTED IT TAKEN OUT.
[2017-02-13 12:00] VITALS: BP 145/65
[2017-02-13 16:00] VITALS: BP 124/70
[2017-02-13 18:57] VITALS: BP 130/82
--- NOTE | 2017-02-13 18:58 | NUR ---
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 WHEN I WALKED INTO HIS ROOM, PATIENT CRYING AND HOLDING CHEST. LUNGS CLEAR, HRR, VITALS 75, 22, 130/82. PATIENT STATES HIS CHEST HURTS ON THE LEFT SIDE, EVEN WHEN I LIGHTLY PALPATE. DR Adalid PENNY SAID TO ORDER STAT 2V XRAY AND STAT TROPININS CYCLE X3 Q3H, AND INFORM HOSPITALISTS SINCE HE IS NOT AT HOSPITAL AND UPDATE THE TEAM ON EVERYTHING GOING ON AND WHAT WAS ORDERED. DR Diane MCCAULEY UPDATED ON PATIENT'S STATUS. PATIENT NOT OFF THE FLOOR YET FOR XRAY
--- NOTE | 2017-02-13 19:07 | NUR ---
24 HR chart check completed.
[2017-02-13 20:00] VITALS: BP 129/77
--- NOTE | 2017-02-13 22:36 | NUR ---
MEDICATED WITH IV MORPHINE ORDERED PER PT REQUEST FOR C/O RIB PAIN FROM COUGHING. CXR NEGATIVE, PT INFORMED.
--- NOTE | 2017-02-13 22:37 | NUR ---
MEIDICATED WITH PO RESTORIL ORDERED PER PT REQUEST FOR C/O INSOMNIA R/T COUGH.
[2017-02-14] VITALS: BP 133/67
--- NOTE | 2017-02-14 01:08 | NUR ---
MEDICATED WITH PO NORCO ORDERED PER PT REQUEST FOR C/O L RIB PAIN R/T COUGHING. PREVIOUS MEDICATIONS SOMEWHAT EFFECTIVE.
--- NOTE | 2017-02-14 04:07 | NUR ---
Patient resting quietly with no c/o discomfort. Respirations easy and regular. Vital signs stable. No overt distress. MEDICATION EFFECTIVE FOR PAIN PT IS RESTING QUIETLY. MAYA FULTON
[2017-02-14 06:03] LABS: BASO % 0.1 % (0.0-1.0); HEMATOCRIT 38.9 % (42.0-52.0); HEMOGLOBIN 13.2 g/dl (14.0-18.0); LYMPH # 1.1 10*3/uL (1.3-4.4); LYMPH % 7.7 % (27.0-41.0); MEAN CELL VOLUME 94.4 fl (80.0-94.0); MEAN CORPUSCULAR HGB CONC 33.9 g/dl (33.0-37.0); MEAN PLATELET VOLUME 9.4 fl (9.6-12.3); MONO # 0.9 10*3/uL (0.1-1.0); MONO % 6.3 % (3.0-9.0); NEUT # 11.7 10*3/uL (2.3-7.9); NEUT % 85.1 % (47.0-73.0); PLATELET COUNT AUTOMATED 245 10*3/uL (130-400); RED BLOOD COUNT 4.12 10*6/uL (4.50-5.90); RED CELL DISTRI WIDTH 14.3 % (0-14.5); WHITE BLOOD COUNT 13.8 10*3/uL (4.8-10.8)
[2017-02-14 06:29] LABS: BUN 20 mg/dl (7-24); CHLORIDE 105 mmol/L (98-107); CREATININE 0.88 mg/dL (0.70-1.30); POTASSIUM 3.9 mmol/L (3.5-5.1); SODIUM 139 mmol/L (136-145)
[2017-02-14 08:00] VITALS: BP 136/82
--- NOTE | 2017-02-14 10:42 | NUR ---
store planner in to see patient. Patient out of the room, will check back later today.
--- NOTE | 2017-02-14 10:54 | NUR ---
Claims Collector in to talk to patient. Patient states lives at home with fiance. There are 0 steps in the home. Physician: toni, Pharmacy: [facility] Home health services: none Patient's level of ADLs: INDEPENDENT Patient has working utilities: yes DME: none Follow-up physician's appointment after d/c: self Does patient want to access PORTAL?: no Discharge plan home with fiance and return to work. denies any needs. . FRIDA SINGH
[2017-02-14 12:00] VITALS: BP 131/73
--- NOTE | 2017-02-14 13:47 | NUR ---
DR. PRUITT CALLED FOR CONSULT FOR BackliftMA
[2017-02-14 16:00] VITALS: BP 134/77
[2017-02-14 20:00] VITALS: BP 129/79
[2017-02-15] VITALS: BP 138/80
--- NOTE | 2017-02-15 03:15 | NUR ---
PATIENT SLEPEING AT THIS TIME. NO DISTRESS NOTED FROM PATIENT. NO CONCERNS AT THIS TIME.
[2017-02-15 08:00] VITALS: BP 147/84
[2017-02-15 12:00] VITALS: BP 157/88
[2017-02-15 16:00] VITALS: BP 136/78
[2017-02-15 20:00] VITALS: BP 161/89
--- NOTE | 2017-02-15 20:00 | NUR ---
PATIENT IS SITTING UP AT BEDSIDE WATCHING TV. PATIENT COMPLAINS OF LEFT SIDED CHEST PAIN RATED AN 8/10. PATIENT WAS GIVEN NORCO 325MG AND WILL BE RE-EVALUATED. CALL LIGHT IS WITHIN REACH.
--- NOTE | 2017-02-15 23:16 | NUR ---
IV started with # angiocath after attempts. The IV site was prepped with Chloraprep. Heparin lock attached Sterile dressing applied. Patient tolerated precedure well. Procedure performed according to [facility] policy & procedure. BRANDI MONIQUE
--- NOTE | 2017-02-15 23:17 | NUR ---
PATIENT HAD RELIEF FROM LEFT SIDED CHEST PAIN BY VERBALIZING A PAIN LEVEL OF 3/10 ON THE PAIN SCALE. PATIENT RESTING COMFORTABLY IN BED WITH CALL LIGHT WITHIN REACH.
[2017-02-16] VITALS: BP 139/88
--- NOTE | 2017-02-16 01:00 | NUR ---
PATIENT IS SLEEPING ON THEIR RIGHT SIDE. PATIENT DENIES ANY FURTHER PAIN OR DISCOMFORT. CALL LIGHT IS WITHIN REACH, SEE SHIFT ASSESSMENT.
[2017-02-16 05:34] LABS: ALBUMIN 2.9 gm/dl (3.1-4.5); BUN 28 mg/dl (7-24); CHLORIDE 103 mmol/L (98-107); CREATININE 0.99 mg/dL (0.70-1.30); POTASSIUM 3.9 mmol/L (3.5-5.1); SGOT/AST 11 IU/L (3-35); SGPT/ALT 18 U/L (12-78); SODIUM 139 mmol/L (136-145)
[2017-02-16 05:35] LABS: ALKALINE PHOSPHATASE 63 U/L (45-117); TOTAL PROTEIN 6.2 gm/dL (6.4-8.2)
[2017-02-16 06:02] LABS: BASO % 0.1 % (0.0-1.0); EOS % 0.1 % (1.0-4.0); HEMATOCRIT 38.3 % (42.0-52.0); LYMPH # 0.7 10*3/uL (1.3-4.4); LYMPH % 4.6 % (27.0-41.0); MEAN CELL VOLUME 93.9 fl (80.0-94.0); MEAN CORPUSCULAR HGB 31.9 pg (27.0-31.0); MEAN CORPUSCULAR HGB CONC 33.9 g/dl (33.0-37.0); MEAN PLATELET VOLUME 9.9 fl (9.6-12.3); MONO # 0.7 10*3/uL (0.1-1.0); NEUT % 88.4 % (47.0-73.0); PLATELET COUNT AUTOMATED 245 10*3/uL (130-400); RED BLOOD COUNT 4.08 10*6/uL (4.50-5.90); RED CELL DISTRI WIDTH 14.1 % (0-14.5); WHITE BLOOD COUNT 14.7 10*3/uL (4.8-10.8)
--- NOTE | 2017-02-16 06:28 | NUR ---
PATIENT IS LAYING IN BED. PATIENT IS PREPPED FOR BRONCHOSCOPY IN THE MORNING AND WAITING FOR TRANSPORT. PATIENT DENIES LEFT SIDED RIB PAIN AT THIS TIME RATED A 2/10. CALL LIGHT IS WITHIN REACH.
--- NOTE | 2017-02-16 06:31 | NUR ---
PATIENT ESCORTED OFF OF FLOOR TO SURGERY VIA BED.
[2017-02-16 06:45] VITALS: BP 162/90
[2017-02-16 07:35] VITALS: BP 185/80
[2017-02-16 08:00] VITALS: BP 141/46
[2017-02-16 12:00] VITALS: BP 146/56
[2017-02-16] MEDS ORDERED: DOXYCYCLINE100 M3 PO (12:21)
[2017-02-16] MEDS ORDERED: PREDNISONE10 MG PO (12:21)
--- NOTE | 2017-02-16 14:03 | NUR ---
Discharge instructions reviewed with patient/family. Patient receptive and verbalizes understanding. Follow-up care arranged. Written instructions given to patient/family. CHRISSY CHAN
[2017-02-17 14:05] LABS: ACID FAST SMEAR Negative (.); ACID FAST SPEC PROCESSING Concentration (.)
== END 2017-02-16 14:03 | disposition home or self-care (01) | DRG 191 ==
LOC: ED 16:40 → 4E 18:53 → EDHOLD 18:53 → 4E 19:30
PROVIDERS: Family Medicine; Internal Medicine; Internal Medicine Critical Care Medicine; Nurse Practitioner Family; ADMIT Internal Medicine
PROC: 0BCB8ZZ Extirpation of Matter from Left Lower Lobe Bronchus, Via Natural or Artificial Opening Endoscopic (ICD-10-PCS; principal; 2017-02-16)
PROC: 0BC58ZZ Extirpation of Matter from Right Middle Lobe Bronchus, Via Natural or Artificial Opening Endoscopic (ICD-10-PCS; principal; 2017-02-16)
PROC: 0BC88ZZ Extirpation of Matter from Left Upper Lobe Bronchus, Via Natural or Artificial Opening Endoscopic (ICD-10-PCS; principal; 2017-02-16)
PROC: 0BC68ZZ Extirpation of Matter from Right Lower Lobe Bronchus, Via Natural or Artificial Opening Endoscopic (ICD-10-PCS; principal; 2017-02-16)
PROC: 0BC98ZZ Extirpation of Matter from Lingula Bronchus, Via Natural or Artificial Opening Endoscopic (ICD-10-PCS; principal; 2017-02-16)
PROC: 0BC78ZZ Extirpation of Matter from Left Main Bronchus, Via Natural or Artificial Opening Endoscopic (ICD-10-PCS; principal; 2017-02-16)
PROC: 0BC48ZZ Extirpation of Matter from Right Upper Lobe Bronchus, Via Natural or Artificial Opening Endoscopic (ICD-10-PCS; principal; 2017-02-16)
PROC: 0BC18ZZ Extirpation of Matter from Trachea, Via Natural or Artificial Opening Endoscopic (ICD-10-PCS; principal; 2017-02-16)
PROC: 0BC38ZZ Extirpation of Matter from Right Main Bronchus, Via Natural or Artificial Opening Endoscopic (ICD-10-PCS; principal; 2017-02-16)
DX: J44.0 Chronic obstructive pulmonary disease with (acute) lower respiratory infection (principal); R64 Cachexia; Q31.3 Laryngocele; E87.8 Other disorders of electrolyte and fluid balance, not elsewhere classified; I25.110 Atherosclerotic heart disease of native coronary artery with unstable angina pectoris; Z68.1 Body mass index [BMI] 19.9 or less, adult; J44.1 Chronic obstructive pulmonary disease with (acute) exacerbation; J20.9 Acute bronchitis, unspecified; R07.89 Other chest pain; I65.21 Occlusion and stenosis of right carotid artery; M99.81 Other biomechanical lesions of cervical region; M43.22 Fusion of spine, cervical region; D72.810 Lymphocytopenia; R73.9 Hyperglycemia, unspecified; E78.5 Hyperlipidemia, unspecified; I10 Essential (primary) hypertension; F41.9 Anxiety disorder, unspecified; D64.9 Anemia, unspecified; R63.6 Underweight; E55.9 Vitamin D deficiency, unspecified; M54.12 Radiculopathy, cervical region; R73.03 Prediabetes; Z72.0 Tobacco use; Z71.6 Tobacco abuse counseling

== ENCOUNTER 2017-04-11 10:17 | Emergency (ER) | payer OTHER ==
[~2017-04-11] VITALS: Ht 177.8 cm; Wt 51.3 kg
[~2017-04-11 10:17] MED LIST changes: +DOXYCYCLINE100 M3 PO; +PREDNISONE10 MG PO
[2017-04-11] MEDS ORDERED: NAPROSYN500 MG PO (10:42)
[2017-04-11] MEDS ORDERED: 'PARAFON FORTE500 M1 PO (10:42)
== END 2017-04-11 12:40 | disposition home or self-care (01) ==
LOC: ED 10:17
DX: S20.229A Contusion of unspecified back wall of thorax, initial encounter (principal); I10 Essential (primary) hypertension; I25.10 Atherosclerotic heart disease of native coronary artery without angina pectoris; J44.9 Chronic obstructive pulmonary disease, unspecified; E78.5 Hyperlipidemia, unspecified; I25.2 Old myocardial infarction; E11.9 Type 2 diabetes mellitus without complications; F17.200 Nicotine dependence, unspecified, uncomplicated; W03.XXXA Other fall on same level due to collision with another person, initial encounter; Z79.82 Long term (current) use of aspirin; Z79.899 Other long term (current) drug therapy; Y93.89 Activity, other specified; Y92.89 Other specified places as the place of occurrence of the external cause; Y99.8 Other external cause status

== ENCOUNTER → 2017-05-29 | Outpatient (CLI) | payer OTHER ==
[~2017-05-29] MED LIST changes: +'PARAFON FORTE500 M1 PO
== END | disposition home or self-care (01) ==
LOC: RAD 16:03
DX: J40 Bronchitis, not specified as acute or chronic (principal)

== ENCOUNTER 2017-07-26 09:01 | Emergency (ER) | payer OTHER ==
[~2017-07-26] VITALS: Ht 175.2 cm; Wt 70.3 kg
[2017-07-26 09:37] LABS: BASO # 0.1 10*3/uL (0.0-0.1); BASO % 0.6 % (0.0-1.0); EOS # 0.1 10*3/uL (0.0-0.4); EOS % 1.4 % (1.0-4.0); HEMATOCRIT 41.4 % (42.0-52.0); HEMOGLOBIN 13.9 g/dl (14.0-18.0); LYMPH # 2.1 10*3/uL (1.3-4.4); LYMPH % 26.5 % (27.0-41.0); MEAN CELL VOLUME 92.8 fl (80.0-94.0); MEAN CORPUSCULAR HGB 31.2 pg (27.0-31.0); MEAN CORPUSCULAR HGB CONC 33.6 g/dl (33.0-37.0); MEAN PLATELET VOLUME 9.4 fl (9.6-12.3); MONO # 0.7 10*3/uL (0.1-1.0); MONO % 9.1 % (3.0-9.0); NEUT # 4.8 10*3/uL (2.3-7.9); NEUT % 62.1 % (47.0-73.0); PLATELET COUNT AUTOMATED 226 10*3/uL (130-400); RED BLOOD COUNT 4.46 10*6/uL (4.50-5.90); RED CELL DISTRI WIDTH 13.6 % (0-14.5); WHITE BLOOD COUNT 7.7 10*3/uL (4.8-10.8)
[2017-07-26 09:51] LABS: ALBUMIN 3.6 gm/dl (3.1-4.5); ALKALINE PHOSPHATASE 87 U/L (45-117); BUN 14 mg/dl (7-24); CHLORIDE 104 mmol/L (98-107); CREATININE 0.83 mg/dL (0.70-1.30); POTASSIUM 4.1 mmol/L (3.5-5.1); SGOT/AST 22 IU/L (3-35); SGPT/ALT 17 U/L (12-78); SODIUM 140 mmol/L (136-145)
[2017-07-26] MEDS ORDERED: TYLENOL W/ CODEI5 ML PO (13:30)
== END 2017-07-26 13:48 | disposition home or self-care (01) ==
LOC: ED 09:01
PROVIDERS: Physician Assistant
DX: R13.10 Dysphagia, unspecified (principal); F17.200 Nicotine dependence, unspecified, uncomplicated; Z79.82 Long term (current) use of aspirin; Z79.899 Other long term (current) drug therapy

== ENCOUNTER 2017-12-04 13:30 | Inpatient (IN) | payer OTHER ==
[2017-12-04] VITALS (7 sets, daily range): BP systolic 152–168; BP diastolic 85–103
[~2017-12-04] VITALS: Ht 177.8 cm; Wt 53.1 kg
--- NOTE | ~2017-12-04 | EKG ---
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
[~2017-12-04 13:30] MED LIST changes: +TYLENOL W/ CODEI5 ML PO
[2017-12-04] MEDS ORDERED: CARBATROL200 MG PO (13:34)
[2017-12-04 14:03] LABS: BASO # 0.1 10*3/uL (0.0-0.1); BASO % 0.7 % (0.0-1.0); EOS # 0.2 10*3/uL (0.0-0.4); EOS % 2.5 % (1.0-4.0); HEMATOCRIT 43.5 % (42.0-52.0); HEMOGLOBIN 14.6 g/dl (14.0-18.0); LYMPH # 2.4 10*3/uL (1.3-4.4); LYMPH % 31.8 % (27.0-41.0); MEAN CELL VOLUME 92.9 fl (80.0-94.0); MEAN CORPUSCULAR HGB 31.2 pg (27.0-31.0); MEAN CORPUSCULAR HGB CONC 33.6 g/dl (33.0-37.0); MEAN PLATELET VOLUME 9.5 fl (9.6-12.3); MONO # 0.8 10*3/uL (0.1-1.0); MONO % 10.2 % (3.0-9.0); NEUT # 4.2 10*3/uL (2.3-7.9); NEUT % 54.5 % (47.0-73.0); PLATELET COUNT AUTOMATED 235 10*3/uL (130-400); RED BLOOD COUNT 4.68 10*6/uL (4.50-5.90); WHITE BLOOD COUNT 7.6 10*3/uL (4.8-10.8)
[2017-12-04 14:12] LABS: ACT PARTIAL THROMBO TIME 24.3 SECONDS (20.8-31.5)
[2017-12-04 14:21] LABS: ALBUMIN 3.8 gm/dl (3.1-4.5); ALKALINE PHOSPHATASE 94 U/L (45-117); BUN 18 mg/dl (7-24); CHLORIDE 107 mmol/L (98-107); CREATININE 0.86 mg/dL (0.70-1.30); LIPASE 211 U/L (73-393); POTASSIUM 3.5 mmol/L (3.5-5.1); SGOT/AST 17 IU/L (3-35); SGPT/ALT 18 U/L (12-78); SODIUM 141 mmol/L (136-145); TOTAL PROTEIN 7.4 gm/dL (6.4-8.2)
[2017-12-04 14:22] LABS: TROPONIN I < 0.015 ng/ml (<0.045)
[2017-12-04 14:39] LABS: CARBAMAZEPINE (TEGRETOL) TOTAL 4.2 ug/ml (4-12)
[2017-12-04] MEDS ORDERED: LISINOPRIL20 MG PO (16:48)
[2017-12-04] MEDS ORDERED: HYDROCHLOROTH12.5 M2 PO (16:49)
[2017-12-05] VITALS: BP 159/92
[2017-12-05 06:14] LABS: BASO # 0.1 10*3/uL (0.0-0.1); BASO % 0.7 % (0.0-1.0); EOS # 0.4 10*3/uL (0.0-0.4); HEMOGLOBIN 14.5 g/dl (14.0-18.0); LYMPH # 2.2 10*3/uL (1.3-4.4); LYMPH % 29.7 % (27.0-41.0); MEAN PLATELET VOLUME 9.5 fl (9.6-12.3); MONO # 0.8 10*3/uL (0.1-1.0); MONO % 10.9 % (3.0-9.0); NEUT % 53.6 % (47.0-73.0); PLATELET COUNT AUTOMATED 231 10*3/uL (130-400); RED BLOOD COUNT 4.68 10*6/uL (4.50-5.90); RED CELL DISTRI WIDTH 13.8 % (0-14.5); WHITE BLOOD COUNT 7.5 10*3/uL (4.8-10.8)
[2017-12-05 06:39] LABS: BUN 17 mg/dl (7-24); CHLORIDE 110 mmol/L (98-107); CHOLESTEROL 176 mg/dL (<200); CREATININE 0.91 mg/dL (0.70-1.30); PHOSPHOROUS 3.9 mg/dL (2.5-4.9); POTASSIUM 3.5 mmol/L (3.5-5.1); SODIUM 143 mmol/L (136-145); TRIGLYCERIDES 77 mg/dl (<150); VLDL CHOLESTEROL 15 mg/dL (6-40)
[2017-12-05 06:47] LABS: FREE T4 0.85 ng/dl (0.76-1.46); HDL CHOLESTEROL 38 mg/dl (40-60); LDL CHOLESTEROL 123 mg/dL (9-159); THYROID STIM HORMONE (HS) 0.872 uIU/ml (0.358-4.75)
[2017-12-05 07:45] LABS: VITAMIN D, 25-HYDROXY 23.9 ng/mL (30-100)
[2017-12-05 08:00] VITALS: BP 144/84; BP 160/82
[2017-12-05 12:00] VITALS: BP 118/72
[2017-12-05 16:00] VITALS: BP 125/81
[2017-12-05 20:00] VITALS: BP 142/77
[2017-12-06] VITALS: BP 152/86
[2017-12-06 06:58] LABS: BASO # 0.1 10*3/uL (0.0-0.1); BASO % 0.6 % (0.0-1.0); EOS # 0.2 10*3/uL (0.0-0.4); EOS % 2.3 % (1.0-4.0); HEMATOCRIT 41.2 % (42.0-52.0); HEMOGLOBIN 13.2 g/dl (14.0-18.0); LYMPH # 2.2 10*3/uL (1.3-4.4); LYMPH % 27.2 % (27.0-41.0); MEAN CELL VOLUME 95.6 fl (80.0-94.0); MEAN CORPUSCULAR HGB 30.6 pg (27.0-31.0); MEAN PLATELET VOLUME 9.9 fl (9.6-12.3); MONO # 0.8 10*3/uL (0.1-1.0); MONO % 9.7 % (3.0-9.0); NEUT # 4.9 10*3/uL (2.3-7.9); NEUT % 59.8 % (47.0-73.0); PLATELET COUNT AUTOMATED 225 10*3/uL (130-400); RED BLOOD COUNT 4.31 10*6/uL (4.50-5.90); RED CELL DISTRI WIDTH 13.7 % (0-14.5); WHITE BLOOD COUNT 8.2 10*3/uL (4.8-10.8)
[2017-12-06 07:27] LABS: CHLORIDE 108 mmol/L (98-107); SODIUM 143 mmol/L (136-145)
[2017-12-06 07:33] LABS: BUN 23 mg/dl (7-24); CREATININE 1.03 mg/dL (0.70-1.30)
[2017-12-06 08:00] VITALS: BP 142/88
[2017-12-06] MEDS ORDERED: Zestril,Prinivi40 MG PO (12:06)
[2017-12-06] MEDS ORDERED: HYDR12.5C PO (12:06)
== END 2017-12-06 13:43 | disposition home or self-care (01) | DRG 305 ==
LOC: ED 13:30 → 4E 15:22 → EDHOLD 15:22 → 4E 15:47
PROVIDERS: Emergency Medicine; Internal Medicine Nephrology
DX: I16.1 Hypertensive emergency (principal); E83.41 Hypermagnesemia; Z68.1 Body mass index [BMI] 19.9 or less, adult; D72.821 Monocytosis (symptomatic); R42 Dizziness and giddiness; R73.9 Hyperglycemia, unspecified; I10 Essential (primary) hypertension; E78.5 Hyperlipidemia, unspecified; I25.118 Atherosclerotic heart disease of native coronary artery with other forms of angina pectoris; E55.9 Vitamin D deficiency, unspecified; M50.30 Other cervical disc degeneration, unspecified cervical region; J44.9 Chronic obstructive pulmonary disease, unspecified; F41.9 Anxiety disorder, unspecified; R63.6 Underweight; I25.2 Old myocardial infarction; Z80.8 Family history of malignant neoplasm of other organs or systems; Z71.6 Tobacco abuse counseling; Z72.0 Tobacco use; Z82.49 Family history of ischemic heart disease and other diseases of the circulatory system; Z83.3 Family history of diabetes mellitus; Z84.89 Family history of other specified conditions; Z98.1 Arthrodesis status; Z88.8 Allergy status to other drugs, medicaments and biological substances; Z79.899 Other long term (current) drug therapy; Z79.82 Long term (current) use of aspirin

== ENCOUNTER → 2017-12-11 | Outpatient (CLI) | payer OTHER ==
[~2017-12-11] MED LIST changes: +CARBATROL200 MG PO; +HYDR12.5C PO; +HYDROCHLOROTH12.5 M2 PO; +LISINOPRIL20 MG PO; +Zestril,Prinivi40 MG PO
== END | disposition home or self-care (01) ==
LOC: LAB 11:09
DX: J44.9 Chronic obstructive pulmonary disease, unspecified (principal)

== ENCOUNTER 2018-03-08 13:49 | Emergency (ER) | payer OTHER ==
[~2018-03-08] VITALS: Ht 177.8 cm; Wt 52.2 kg
[2018-03-08] MEDS ORDERED: NAPROSYN500 MG PO (14:13)
== END 2018-03-08 15:33 | disposition home or self-care (01) ==
LOC: ED 13:49
DX: S60.051A Contusion of right little finger without damage to nail, initial encounter (principal); I10 Essential (primary) hypertension; I25.10 Atherosclerotic heart disease of native coronary artery without angina pectoris; J44.9 Chronic obstructive pulmonary disease, unspecified; I25.2 Old myocardial infarction; E78.5 Hyperlipidemia, unspecified; F17.200 Nicotine dependence, unspecified, uncomplicated; Z79.899 Other long term (current) drug therapy; Z79.82 Long term (current) use of aspirin; W23.0XXA Caught, crushed, jammed, or pinched between moving objects, initial encounter; Y93.89 Activity, other specified; Y92.89 Other specified places as the place of occurrence of the external cause; Y99.8 Other external cause status

== ENCOUNTER 2018-03-25 14:32 | Inpatient (IN) | payer OTHER ==
[~2018-03-25] VITALS: Ht 177.8 cm; Wt 50.8 kg
--- NOTE | ~2018-03-25 | EKG ---
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
--- NOTE | ~2018-03-25 | CON ---
[place], [place] REPORT OF CONSULTATION NAME: SARA CHERRY UNIT #: [id number] ROOM: 428 DOCTOR: KAT BOTELLO MD BIRTHDATE: [birth year] DOS: 03/25/2018 REASON FOR CONSULTATION: Chest pain. HISTORY OF PRESENT ILLNESS: A 57-year-old gentleman with history of previous myocardial infarction, COPD, hypertension, and hyperlipidemia, admitted with chest discomfort. The pain was in the midsternal, radiating to his left arm. No acute EKG changes suggestion of myocardial injury or infarction. The patient was discharged with hypertensive urgency. Echo done at that time showed an ejection fraction of 60% with normal wall motion. Last stress test was in August 2016 and was normal. PAST MEDICAL HISTORY: Significant for coronary artery disease, previous AR, hypertension, hyperlipidemia, COPD, degenerative disk disease, history of dysphagia, history of hemorrhoids, and hyperlipidemia. PAST SURGICAL HISTORY: Back surgery, history of biopsy, cardiac radiofrequency ablation, EGD, status-post excision of the vocal cords. FAMILY HISTORY: Positive for coronary artery disease. ALLERGIES: COUGH SYRUP. HOME MEDICATIONS: Aspirin, inhalers, isosorbide, lisinopril, Ranexa, and Zocor. REVIEW OF SYSTEMS: CONSTITUTIONAL: No fever, no chills. HEENT: No visual disturbances or hearing problems. CARDIOVASCULAR: As per HPI. GASTROINTESTINAL: No nausea or vomiting. GENITOURINARY: No dysuria. NEUROLOGIC: No syncope. PHYSICAL EXAMINATION: VITAL SIGNS: The patient's blood pressure is 120/72. He is in sinus rhythm. HEENT: Unremarkable. NECK: Supple. No JVD. LUNGS: Clear. HEART: Sounds are regular. ABDOMEN: Soft, nontender. NEUROLOGICAL: Stable. LABORATORY AND DIAGNOSTIC DATA: Electrolytes are normal. Creatinine is 1.1. INR is 1. Hemoglobin and hematocrit 14 and 31. EKG, sinus with nonspecific ST-T changes. IMPRESSION: The patient with previous myocardial infarction, hypertension, and hyperlipidemia with chest pain. RECOMMENDATIONS: Agree with the present management, agree with proceeding with [place], [place] REPORT OF CONSULTATION NAME: SARA CHERRY UNIT #: [id number] ROOM: 428 DOCTOR: KAT BOTELLO MD BIRTHDATE: [birth year] a stress test and I will follow up with the results of the stress test. KAT BOTELLO MD CM:CONSTR:REPORT OF CONSULTATION [id number] 03/26/18 0725 interface
--- NOTE | ~2018-03-25 | EKG ---
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 : 1960 Requested By: GILBERTO PENNY Order Number: [id number] Reading MD: Bartolo Ricks MD Measurements Intervals [place] Rate: 58 P: 89 VA: 153 QRS: 84 QRSD: 80 T: 79 QT: 414 QTc: 407 Interpretive Statements Sinus rhythm Abnrm T, consider ischemia, anterolateral lds Borderline ST elevation, inferior leads Compared to ECG 12/04/2017 13:44:11 Possible ischemia now present ST (T wave) deviation now present Ectopic atrial rhythm no longer present Electronically Signed On 03-26-2018 4:18:20 PST by Bartolo Ricks MD CM:EKGRPT:ELECTROCARDIOGRAM REPORT 12 [id number] GILBERTO MCCARTY DRAFT REPORT GILBERTO PENNY DO
--- NOTE | ~2018-03-25 | EKG ---
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: Crystal Pollock : 1960 Requested By: GILBERTO PENNY Order Number: [id number] Reading MD: Bartolo Ricks MD Measurements Intervals [place] Rate: 56 P: 82 [place]: 146 QRS: 85 QRSD: 84 T: 78 QT: 413 QTc: 399 Interpretive Statements Sinus rhythm RSR' in V1 or V2, probably normal variant Nonspecific T abnrm, anterolateral leads ST elevation, consider anterolateral injury Compared to ECG 12/04/2017 13:44:11 RSR' in V1 or V2 now present ST (T wave) deviation now present Myocardial infarct finding now present Ectopic atrial rhythm no longer present Electronically Signed On 03-26-2018 4:18:12 PST by Bartolo Ricks MD CM:EKGRPT:ELECTROCARDIOGRAM REPORT [id number] 0418 GILBERTO MCCARTY DRAFT REPORT GILBERTO PENNY DO
[2018-03-25 14:53] LABS: BASO # 0.1 10*3/uL (0.0-0.1); BASO % 0.6 % (0.0-1.0); EOS # 0.2 10*3/uL (0.0-0.4); EOS % 1.9 % (1.0-4.0); HEMATOCRIT 42.8 % (42.0-52.0); HEMOGLOBIN 14.5 g/dl (14.0-18.0); LYMPH # 2.8 10*3/uL (1.3-4.4); LYMPH % 26.4 % (27.0-41.0); MEAN CELL VOLUME 92.8 fl (80.0-94.0); MEAN CORPUSCULAR HGB 31.5 pg (27.0-31.0); MEAN CORPUSCULAR HGB CONC 33.9 g/dl (33.0-37.0); MEAN PLATELET VOLUME 9.6 fl (9.6-12.3); MONO # 0.9 10*3/uL (0.1-1.0); MONO % 8.8 % (3.0-9.0); NEUT # 6.6 10*3/uL (2.3-7.9); NEUT % 62.1 % (47.0-73.0); PLATELET COUNT AUTOMATED 274 10*3/uL (130-400); RED BLOOD COUNT 4.61 10*6/uL (4.50-5.90); RED CELL DISTRI WIDTH 13.9 % (0-14.5); WHITE BLOOD COUNT 10.6 10*3/uL (4.8-10.8)
[2018-03-25 14:59] VITALS: BP 128/79
[2018-03-25 15:03] LABS: ACT PARTIAL THROMBO TIME 22.5 SECONDS (20.8-31.5)
[2018-03-25 15:09] LABS: ALBUMIN 3.5 gm/dl (3.1-4.5); ALKALINE PHOSPHATASE 78 U/L (45-117); BUN 21 mg/dl (7-24); CHLORIDE 106 mmol/L (98-107); CREATININE 1.18 mg/dL (0.70-1.30); POTASSIUM 3.9 mmol/L (3.5-5.1); SGOT/AST 16 IU/L (3-35); SGPT/ALT 16 U/L (12-78); SODIUM 142 mmol/L (136-145); TOTAL PROTEIN 7.3 gm/dL (6.4-8.2)
[2018-03-25 15:11] LABS: TROPONIN I < 0.015 ng/ml (<0.045)
[2018-03-25 16:00] VITALS: BP 154/81
[2018-03-25 16:15] VITALS: BP 130/62
[2018-03-25 16:50] VITALS: BP 126/78
[2018-03-25 17:00] VITALS: BP 154/81; BP 154/82
[2018-03-25] MEDS ORDERED: METOPROLOL SUCC50 M1 PO (17:14)
[2018-03-25] MEDS ORDERED: CITALOPRAM20 MG PO (17:16)
[2018-03-25] MEDS ORDERED: CLONIDINE0.2 MG PO (17:17)
[2018-03-25] MEDS ORDERED: AMLODIPINE BESY10 MG PO (17:19)
[2018-03-25 20:00] VITALS: BP 152/83
[2018-03-26] VITALS: BP 158/84
[2018-03-26 06:59] LABS: BASO # 0.1 10*3/uL (0.0-0.1); BASO % 0.6 % (0.0-1.0); EOS # 0.4 10*3/uL (0.0-0.4); HEMOGLOBIN 14.5 g/dl (14.0-18.0); LYMPH # 2.3 10*3/uL (1.3-4.4); LYMPH % 25.6 % (27.0-41.0); MEAN CELL VOLUME 93.2 fl (80.0-94.0); MEAN CORPUSCULAR HGB 30.7 pg (27.0-31.0); MEAN PLATELET VOLUME 9.6 fl (9.6-12.3); MONO # 0.8 10*3/uL (0.1-1.0); MONO % 9.1 % (3.0-9.0); NEUT # 5.3 10*3/uL (2.3-7.9); NEUT % 60.5 % (47.0-73.0); PLATELET COUNT AUTOMATED 250 10*3/uL (130-400); RED BLOOD COUNT 4.72 10*6/uL (4.50-5.90); RED CELL DISTRI WIDTH 13.9 % (0-14.5); WHITE BLOOD COUNT 8.8 10*3/uL (4.8-10.8)
[2018-03-26 07:23] LABS: ALBUMIN 3.4 gm/dl (3.1-4.5); ALKALINE PHOSPHATASE 78 U/L (45-117); BUN 18 mg/dl (7-24); CHLORIDE 109 mmol/L (98-107); CHOLESTEROL 183 mg/dL (<200); HDL CHOLESTEROL 37 mg/dl (40-60); LDL CHOLESTEROL 120 mg/dL (9-159); PHOSPHOROUS 2.6 mg/dL (2.5-4.9); POTASSIUM 3.9 mmol/L (3.5-5.1); SGOT/AST 15 IU/L (3-35); SGPT/ALT 14 U/L (12-78); SODIUM 143 mmol/L (136-145); TOTAL PROTEIN 7.1 gm/dL (6.4-8.2); TRIGLYCERIDES 131 mg/dl (<150); VLDL CHOLESTEROL 26 mg/dL (6-40)
[2018-03-26 08:00] VITALS: BP 144/80
[2018-03-26 12:00] VITALS: BP 153/95
== END 2018-03-26 17:00 | disposition home or self-care (01) | DRG 313 ==
LOC: ED 14:32 → EDHOLD 15:50 → 4E 15:50
PROVIDERS: Emergency Medicine; Internal Medicine
DX: R07.89 Other chest pain (principal); E78.5 Hyperlipidemia, unspecified; I10 Essential (primary) hypertension; I25.10 Atherosclerotic heart disease of native coronary artery without angina pectoris; F41.9 Anxiety disorder, unspecified; J44.9 Chronic obstructive pulmonary disease, unspecified; R73.9 Hyperglycemia, unspecified; F17.200 Nicotine dependence, unspecified, uncomplicated; Z83.3 Family history of diabetes mellitus; Z82.49 Family history of ischemic heart disease and other diseases of the circulatory system; Z80.9 Family history of malignant neoplasm, unspecified; I25.2 Old myocardial infarction; Z88.8 Allergy status to other drugs, medicaments and biological substances; Z79.51 Long term (current) use of inhaled steroids; Z79.82 Long term (current) use of aspirin; Z79.899 Other long term (current) drug therapy

== ENCOUNTER 2018-04-24 17:48 | Emergency (ER) | payer SELFPAY ==
[~2018-04-24] VITALS: Ht 177.8 cm; Wt 49.9 kg
[~2018-04-24 17:48] MED LIST changes: +AMLODIPINE BESY10 MG PO; +CITALOPRAM20 MG PO; +CLONIDINE0.2 MG PO; +METOPROLOL SUCC50 M1 PO
== END 2018-04-24 20:45 | disposition home or self-care (01) ==
LOC: ED 17:48
DX: S63.418A Traumatic rupture of collateral ligament of other finger at metacarpophalangeal and interphalangeal joint, initial encounter (principal); I10 Essential (primary) hypertension; I25.10 Atherosclerotic heart disease of native coronary artery without angina pectoris; I25.2 Old myocardial infarction; F17.200 Nicotine dependence, unspecified, uncomplicated; Z79.899 Other long term (current) drug therapy; Z79.82 Long term (current) use of aspirin; V98.8XXA Other specified transport accidents, initial encounter; Y93.89 Activity, other specified; Y92.89 Other specified places as the place of occurrence of the external cause; Y99.8 Other external cause status

== ENCOUNTER 2018-05-20 12:34 | Emergency (ER) | payer BC ==
[~2018-05-20] VITALS: Ht 177.8 cm; Wt 52.6 kg
[2018-05-20 13:15] LABS: BASO # 0.1 10*3/uL (0.0-0.1); BASO % 0.5 % (0.0-1.0); EOS # 0.2 10*3/uL (0.0-0.4); EOS % 1.7 % (1.0-4.0); HEMATOCRIT 44.5 % (42.0-52.0); LYMPH # 2.6 10*3/uL (1.3-4.4); LYMPH % 26.9 % (27.0-41.0); MEAN CELL VOLUME 92.3 fl (80.0-94.0); MEAN CORPUSCULAR HGB 31.1 pg (27.0-31.0); MEAN CORPUSCULAR HGB CONC 33.7 g/dl (33.0-37.0); MONO # 0.9 10*3/uL (0.1-1.0); MONO % 8.8 % (3.0-9.0); NEUT % 61.9 % (47.0-73.0); PLATELET COUNT AUTOMATED 343 10*3/uL (130-400); RED BLOOD COUNT 4.82 10*6/uL (4.50-5.90); RED CELL DISTRI WIDTH 14.1 % (0-14.5); WHITE BLOOD COUNT 9.7 10*3/uL (4.8-10.8)
[2018-05-20 13:56] LABS: ACT PARTIAL THROMBO TIME 23.9 SECONDS (20.8-31.5)
[2018-05-20 14:01] LABS: ALBUMIN 3.8 gm/dl (3.1-4.5); ALKALINE PHOSPHATASE 77 U/L (45-117); BUN 17 mg/dl (7-24); CHLORIDE 110 mmol/L (98-107); CREATININE 1.01 mg/dL (0.70-1.30); POTASSIUM 3.5 mmol/L (3.5-5.1); SGOT/AST 18 IU/L (3-35); SGPT/ALT 22 U/L (12-78); SODIUM 142 mmol/L (136-145); TOTAL PROTEIN 7.3 gm/dL (6.4-8.2)
== END 2018-05-20 16:55 | disposition left against medical advice (07) ==
LOC: ED 12:34
PROVIDERS: Nurse Practitioner Family
DX: R51 Headache (principal); R94.02 Abnormal brain scan; R11.0 Nausea; I25.10 Atherosclerotic heart disease of native coronary artery without angina pectoris; J44.9 Chronic obstructive pulmonary disease, unspecified; I25.2 Old myocardial infarction; E78.5 Hyperlipidemia, unspecified; I10 Essential (primary) hypertension; F17.200 Nicotine dependence, unspecified, uncomplicated; Z79.899 Other long term (current) drug therapy; Z79.82 Long term (current) use of aspirin

== ENCOUNTER 2018-08-08 13:39 | Emergency (ER) | payer BC ==
[~2018-08-08] VITALS: Ht 177.8 cm; Wt 53.5 kg
[2018-09-06] MEDS ORDERED: Hydralazine Hyd25 MG PO (13:03)
== END 2018-08-08 15:51 | disposition home or self-care (01) ==
LOC: ED 13:39
DX: R51 Headache (principal); R05 Cough; I10 Essential (primary) hypertension; I25.2 Old myocardial infarction; J44.9 Chronic obstructive pulmonary disease, unspecified; I48.0 Paroxysmal atrial fibrillation; F17.200 Nicotine dependence, unspecified, uncomplicated; Z79.899 Other long term (current) drug therapy; Z79.82 Long term (current) use of aspirin

== ENCOUNTER → 2018-10-09 | Outpatient (CLI) | payer BC ==
[~2018-10-09] MED LIST changes: +Hydralazine Hyd25 MG PO; +Motrin,Rufen800 MG PO
== END | disposition home or self-care (01) ==
LOC: US 09:20
DX: I10 Essential (primary) hypertension (principal)

== ENCOUNTER → 2018-10-10 | Outpatient (CLI) | payer BC ==
[2018-10-15 10:10] LABS: NORMETANEPHRINE URINE 401 ug/L (Undefined); URINE METANEPHRINE 132 ug/L (Undefined); URINE METANEPHRINE, 24 HR 383 ug/24 hr (45-290); URINE NORMETANEPHRINE 24HR 1163 ug/24 hr (82-500)
[2018-10-18 12:07] LABS: DOPAMINE, URINE 248 ug/L (Undefined); EPINEPHRINE, URINE 24 HR 29 ug/24 hr (0-20)
== END | disposition home or self-care (01) ==
LOC: LAB 13:32
PROVIDERS: Internal Medicine
DX: I10 Essential (primary) hypertension (principal)

== ENCOUNTER → 2018-10-24 | Outpatient (CLI) | payer BC | END | disposition home or self-care (01) | LOC: CT 01:33 | DX: R79.89 Other specified abnormal findings of blood chemistry (principal) ==

== ENCOUNTER 2018-12-23 16:32 | Emergency (ER) | payer OTHER ==
[~2018-12-23] VITALS: Ht 177.8 cm; Wt 53.1 kg
[~2018-12-23 16:32] MED LIST changes: -Motrin,Rufen800 MG PO
[2018-12-23 17:18] LABS: BASO % 0.2 % (0.0-1.0); EOS # 0.2 10*3/uL (0.0-0.4); EOS % 2.8 % (1.0-4.0); HEMATOCRIT 35.6 % (42.0-52.0); HEMOGLOBIN 11.7 g/dl (14.0-18.0); MEAN CELL VOLUME 96.7 fl (80.0-94.0); MEAN CORPUSCULAR HGB 31.8 pg (27.0-31.0); MEAN CORPUSCULAR HGB CONC 32.9 g/dl (33.0-37.0); MEAN PLATELET VOLUME 9.5 fl (9.6-12.3); MONO # 0.6 10*3/uL (0.1-1.0); NEUT # 3.3 10*3/uL (2.3-7.9); NEUT % 53.8 % (47.0-73.0); PLATELET COUNT AUTOMATED 201 10*3/uL (130-400); RED BLOOD COUNT 3.68 10*6/uL (4.50-5.90); WHITE BLOOD COUNT 6.1 10*3/uL (4.8-10.8)
[2018-12-23 17:33] LABS: ACT PARTIAL THROMBO TIME 25.9 SECONDS (20.0-32.1); INTERNATIONAL NORM RATIO 0.9 (2.0-3.5)
[2018-12-23 17:38] LABS: ALBUMIN 3.1 gm/dl (3.1-4.5); ALKALINE PHOSPHATASE 68 U/L (45-117); BUN 23 mg/dl (7-24); CHLORIDE 109 mmol/L (98-107); CREATININE 1.09 mg/dL (0.70-1.30); POTASSIUM 4.1 mmol/L (3.5-5.1); SGOT/AST 12 IU/L (3-35); SGPT/ALT 14 U/L (12-78); SODIUM 144 mmol/L (136-145); TOTAL PROTEIN 6.1 gm/dL (6.4-8.2)
[2018-12-23] MEDS ORDERED: Motrin,Rufen800 MG PO (18:28)
== END 2018-12-23 18:45 | disposition home or self-care (01) ==
LOC: ED 16:32
PROVIDERS: Nurse Practitioner Family
DX: I80.8 Phlebitis and thrombophlebitis of other sites (principal); I25.10 Atherosclerotic heart disease of native coronary artery without angina pectoris; J44.9 Chronic obstructive pulmonary disease, unspecified; E78.5 Hyperlipidemia, unspecified; I10 Essential (primary) hypertension; F17.200 Nicotine dependence, unspecified, uncomplicated; Z79.82 Long term (current) use of aspirin; Z79.899 Other long term (current) drug therapy; Z88.8 Allergy status to other drugs, medicaments and biological substances

== ENCOUNTER → 2019-01-31 | Outpatient (CLI) | payer OTHER ==
[~2019-01-31] MED LIST changes: +ASPIRIN ADULT L81 M1 PO; +DOXYCYCLINE100 MG PO; +Ipratropium Brom3 ML INH; +LOPRESSOR25 MG PO; +Motrin,Rufen800 MG PO
[2019-02-06 07:05] LABS: METANEPHRINE, PLASMA <10 pg/mL (0-62); NORMETANEPHRINE, PLASMA 11 pg/mL (0-145)
== END | disposition home or self-care (01) ==
LOC: US 06:30 → LAB 06:32 → US 02-14 13:30
PROVIDERS: Internal Medicine Nephrology
DX: D35.02 Benign neoplasm of left adrenal gland (principal); M79.89 Other specified soft tissue disorders

== ENCOUNTER → 2019-02-05 | Outpatient (CLI) | payer OTHER ==
[2019-02-10 10:02] LABS: NORMETANEPHRINE URINE 246 ug/L (Undefined); URINE METANEPHRINE 59 ug/L (Undefined); URINE METANEPHRINE, 24 HR 80 ug/24 hr (45-290); URINE NORMETANEPHRINE 24HR 332 ug/24 hr (82-500)
[2019-02-11 09:05] LABS: DOPAMINE, URINE 152 ug/L (Undefined); EPINEPHRINE, URINE 24 HR 4 ug/24 hr (0-20)
== END | disposition home or self-care (01) ==
LOC: LAB 10:02
PROVIDERS: Internal Medicine Nephrology
DX: D35.02 Benign neoplasm of left adrenal gland (principal)

== ENCOUNTER 2019-03-03 17:43 | Emergency (ER) | payer OTHER ==
[~2019-03-03] VITALS: Ht 177.8 cm; Wt 51.3 kg
--- NOTE | ~2019-03-03 | EKG ---
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
[~2019-03-03 17:43] MED LIST changes: -ASPIRIN ADULT L81 M1 PO; -DOXYCYCLINE100 MG PO; -Ipratropium Brom3 ML INH; -LOPRESSOR25 MG PO
[2019-03-03 17:45] VITALS: BP 141/87
[2019-03-03 18:02] LABS: BASO % 0.5 % (0.0-1.0); EOS # 0.1 10*3/uL (0.0-0.4); EOS % 1.1 % (1.0-4.0); HEMATOCRIT 44.2 % (42.0-52.0); HEMOGLOBIN 14.6 g/dl (14.0-18.0); LYMPH # 1.3 10*3/uL (1.3-4.4); LYMPH % 19.9 % (27.0-41.0); MEAN CELL VOLUME 92.7 fl (80.0-94.0); MEAN CORPUSCULAR HGB 30.6 pg (27.0-31.0); MEAN PLATELET VOLUME 9.1 fl (9.6-12.3); MONO # 0.7 10*3/uL (0.1-1.0); MONO % 10.5 % (3.0-9.0); NEUT # 4.5 10*3/uL (2.3-7.9); NEUT % 67.8 % (47.0-73.0); PLATELET COUNT AUTOMATED 245 10*3/uL (130-400); RED BLOOD COUNT 4.77 10*6/uL (4.50-5.90); RED CELL DISTRI WIDTH 13.5 % (0-14.5); WHITE BLOOD COUNT 6.6 10*3/uL (4.8-10.8)
[2019-03-03 18:18] LABS: ALBUMIN 3.6 gm/dl (3.1-4.5); ALKALINE PHOSPHATASE 86 U/L (45-117); BUN 14 mg/dl (7-24); CHLORIDE 106 mmol/L (98-107); POTASSIUM 4.2 mmol/L (3.5-5.1); SGOT/AST 17 IU/L (3-35); SGPT/ALT 17 U/L (12-78); SODIUM 137 mmol/L (136-145); TOTAL PROTEIN 7.6 gm/dL (6.4-8.2)
[2019-03-03 18:26] LABS: TROPONIN I < 0.015 ng/ml (<0.045)
[2019-03-03 18:55] LABS: ACT PARTIAL THROMBO TIME 28.5 SECONDS (20.0-32.1); INTERNATIONAL NORM RATIO 0.9 (2.0-3.5)
[2019-03-03] MEDS ORDERED: Ipratropium Brom3 ML INH (19:09)
[2019-03-03] MEDS ORDERED: PREDNISONE20 M1 PO (19:09)
[2019-03-04] MEDS ORDERED: ZOCOR20 MG PO (17:20)
[2019-03-04] MEDS ORDERED: ASPIRIN ADULT L81 M1 PO (17:21)
[2019-03-04] MEDS ORDERED: LOPRESSOR25 MG PO (17:21)
[2019-03-04] MEDS ORDERED: IMDUR SA60 M1 PO (17:21)
== END 2019-03-03 19:08 | disposition left against medical advice (07) ==
LOC: ED 17:43 → EDHOLD 18:41 → ED 18:41
PROVIDERS: Emergency Medicine
DX: J44.1 Chronic obstructive pulmonary disease with (acute) exacerbation (principal); I25.10 Atherosclerotic heart disease of native coronary artery without angina pectoris; E78.5 Hyperlipidemia, unspecified; I10 Essential (primary) hypertension; E11.65 Type 2 diabetes mellitus with hyperglycemia; Z79.82 Long term (current) use of aspirin; Z98.890 Other specified postprocedural states; Z79.899 Other long term (current) drug therapy; Z87.891 Personal history of nicotine dependence

== ENCOUNTER 2019-03-04 16:26 | Inpatient (IN) | payer OTHER ==
[~2019-03-04] VITALS: Ht 177.8 cm; Wt 49.4 kg
[~2019-03-04 16:26] MED LIST changes: +Ipratropium Brom3 ML INH
[2019-03-04 16:50] VITALS: BP 141/86
[2019-03-04] MEDS ORDERED: ZOCOR20 MG PO (17:20)
[2019-03-04] MEDS ORDERED: LOPRESSOR25 MG PO (17:21)
[2019-03-04] MEDS ORDERED: ASPIRIN ADULT L81 M1 PO (17:21)
[2019-03-04] MEDS ORDERED: IMDUR SA60 M1 PO (17:21)
--- NOTE | 2019-03-04 17:23 | NUR ---
Time: 1649 A 58 year old MALE admitted to 5E under services of DR. HILDA DUPONT,MIRNA. Pt. arrived via wheel chair from [place]. Chief complaint: COPD EXACERBATION. PATIENT ORIENTED TO THE FLOOR 5E. ADVANCED DIRECTIVE, BELONGINGS CHECKLIST, AND HEALTHY LIFESTYLE GUIDELINES REVIEWED AND COMPLETED. CALL LIGHT SYSTEM REVIEWED AND DEMONSTRATED. DR. CASAREZ NOTIFIED OF ADMISSION. AWAITING ORDERS. JEFF PUENTES
[2019-03-04 17:52] LABS: ABG BASE EXCESS -1.4 mmol/L (-2.0-2.0)
[2019-03-04 17:53] LABS: ARTERIAL BLOOD GAS PCO2 33.3 mmHg (35-45); ARTERIAL BLOOD GAS PH 7.43 (7.35-7.45)
[2019-03-04 18:02] LABS: HEMATOCRIT 40.4 % (42.0-52.0); HEMOGLOBIN 13.2 g/dl (14.0-18.0); MEAN CELL VOLUME 94.8 fl (80.0-94.0); MEAN CORPUSCULAR HGB CONC 32.7 g/dl (33.0-37.0); MEAN PLATELET VOLUME 9.5 fl (9.6-12.3); PLATELET COUNT AUTOMATED 229 10*3/uL (130-400); RED BLOOD COUNT 4.26 10*6/uL (4.50-5.90); RED CELL DISTRI WIDTH 13.8 % (0-14.5); WHITE BLOOD COUNT 8.4 10*3/uL (4.8-10.8)
[2019-03-04 18:19] LABS: ALBUMIN 3.6 gm/dl (3.1-4.5); ALKALINE PHOSPHATASE 72 U/L (45-117); CHLORIDE 109 mmol/L (98-107); CREATININE 1.08 mg/dL (0.70-1.30); POTASSIUM 4.4 mmol/L (3.5-5.1); SGOT/AST 19 IU/L (3-35); SGPT/ALT 19 U/L (12-78); SODIUM 140 mmol/L (136-145); TOTAL PROTEIN 6.9 gm/dL (6.4-8.2)
[2019-03-04 18:25] LABS: PLATELET SUFFICIENCY NORMAL (NORMAL); TOTAL CELLS COUNTED 100 #CELLS
[2019-03-04 18:27] LABS: BUN 28 mg/dl (7-24); TROPONIN I < 0.015 ng/ml (<0.045)
[2019-03-04 20:00] VITALS: BP 151/86
--- NOTE | 2019-03-04 20:49 | NUR ---
RECEIVED CALL OF CRITICAL LACTIC ACID OF 2.3.
--- NOTE | 2019-03-04 21:12 | NUR ---
WAS UNAVAILABLE DUE TO EMERGENCY. NOTIFIED OF CRITICAL LACTIC ACID OF 2.3 AT THIS TIME.
--- NOTE | 2019-03-04 23:46 | NUR ---
ALLYSON CAMACHO LACTIC ACID LEVEL BACK AND DOWN TO 1.7.
[2019-03-05] VITALS: BP 143/77
[2019-03-05 06:36] LABS: HEMATOCRIT 40.2 % (42.0-52.0); HEMOGLOBIN 13.2 g/dl (14.0-18.0); MEAN CELL VOLUME 93.7 fl (80.0-94.0); MEAN CORPUSCULAR HGB 30.8 pg (27.0-31.0); MEAN CORPUSCULAR HGB CONC 32.8 g/dl (33.0-37.0); MEAN PLATELET VOLUME 9.6 fl (9.6-12.3); PLATELET COUNT AUTOMATED 244 10*3/uL (130-400); RED BLOOD COUNT 4.29 10*6/uL (4.50-5.90); RED CELL DISTRI WIDTH 13.7 % (0-14.5); WHITE BLOOD COUNT 7.5 10*3/uL (4.8-10.8)
[2019-03-05 06:48] LABS: CHLORIDE 113 mmol/L (98-107); POTASSIUM 4.6 mmol/L (3.5-5.1); SODIUM 141 mmol/L (136-145)
[2019-03-05 07:07] LABS: ALBUMIN 3.2 gm/dl (3.1-4.5); ALKALINE PHOSPHATASE 72 U/L (45-117); ATYPICAL LYMPHS 2 % (0-0); BUN 19 mg/dl (7-24); CHOLESTEROL 168 mg/dL (<200); CREATININE 0.91 mg/dL (0.70-1.30); HDL CHOLESTEROL 40 mg/dl (40-60); LDL CHOLESTEROL 116 mg/dL (9-159); PHOSPHOROUS 2.8 mg/dL (2.5-4.9); PLATELET SUFFICIENCY NORMAL (NORMAL); SGOT/AST 21 IU/L (3-35); SGPT/ALT 18 U/L (12-78); THYROID STIM HORMONE (HS) 0.636 uIU/ml (0.358-4.75); TOTAL CELLS COUNTED 100 #CELLS; TOTAL PROTEIN 6.7 gm/dL (6.4-8.2); TRIGLYCERIDES 59 mg/dl (<150); VLDL CHOLESTEROL 12 mg/dL (6-40)
[2019-03-05 07:47] LABS: VITAMIN D, 25-HYDROXY 32.5 ng/mL (30-100)
[2019-03-05 08:00] VITALS: BP 124/74
--- NOTE | 2019-03-05 10:30 | NUR ---
Drapery Cutter Machine in to talk to patient. Patient states lives at home with his fipatrizia, son, and grandbaby. There are 4 steps in the home. Physician: Dr. Geronimo Shaikh Pharmacy: [facility] Home health services: none Patient's level of ADLs: INDEPENDENT Patient has working utilities: yes DME: nebulizer Follow-up physician's appointment after d/c: he prefers to make his own follow up apt after discharge Does patient want to access PORTAL?: no Discharge plan discussed with patient. He lives at home with his fiance, son, and grandbaby. He is independent in her ADLs and ambulation. Discussed home health care services and he denies any home needs. When medically stable he will be discharged to home. His fiance will provide transportation on discharge. ASHLEY CAST
[2019-03-05 12:00] VITALS: BP 127/71
[2019-03-05 12:44] LABS: BILIRUBIN NEGATIVE (NEGATIVE); BLOOD NEGATIVE (NEGATIVE); CLARITY CLEAR (CLEAR); COLOR YELLOW (YELLOW); GLUCOSE TRACE (NEGATIVE); KETONE NEGATIVE (NEGATIVE); LEUKO ESTERASE NEGATIVE (NEGATIVE); NITRITE NEGATIVE (NEGATIVE); SPECIFIC GRAVITY >= 1.030 (1.005-1.030); UROBILINOGEN 0.2 E.U./dl (0.2-1.0)
[2019-03-05 13:09] LABS: EPITHELIAL CELLS 0-2; MUCOUS 2+; WBC 0-2 wbc/hpf (0-5)
--- NOTE | 2019-03-05 15:55 | NUR ---
WALKING IN [place] WITH EASE. NO SXS OF DISTRESS NOTED.
[2019-03-05 16:00] VITALS: BP 112/88
[2019-03-05 20:00] VITALS: BP 108/68
--- NOTE | 2019-03-05 20:37 | NUR ---
PATIENT MEDICATED WITH PRN TYLENOL ORDERED FOR C/O A HEADACHE AND GROIN PAIN. ABX INFUSING ORDERED. PLEASANT AND COOPERATIVE WITH CARE. FAMILY AT BEDISDE AT THIS TIME. CALL LIGHT IN REACH. WILL MONITOR.
[2019-03-06] VITALS: BP 103/58
[2019-03-06 06:41] LABS: HEMATOCRIT 35.9 % (42.0-52.0); HEMOGLOBIN 11.8 g/dl (14.0-18.0); MEAN CELL VOLUME 96.5 fl (80.0-94.0); MEAN CORPUSCULAR HGB 31.7 pg (27.0-31.0); MEAN CORPUSCULAR HGB CONC 32.9 g/dl (33.0-37.0); MEAN PLATELET VOLUME 9.5 fl (9.6-12.3); PLATELET COUNT AUTOMATED 246 10*3/uL (130-400); RED BLOOD COUNT 3.72 10*6/uL (4.50-5.90); RED CELL DISTRI WIDTH 13.7 % (0-14.5); WHITE BLOOD COUNT 9.5 10*3/uL (4.8-10.8)
[2019-03-06 07:08] LABS: BUN 24 mg/dl (7-24); CHLORIDE 111 mmol/L (98-107); CREATININE 0.91 mg/dL (0.70-1.30); POTASSIUM 4.5 mmol/L (3.5-5.1); SODIUM 141 mmol/L (136-145)
[2019-03-06 07:46] LABS: PLATELET SUFFICIENCY NORMAL (NORMAL); TOTAL CELLS COUNTED 100 #CELLS
--- NOTE | 2019-03-06 10:00 | NUR ---
Microarray Specialist in to see patient. No new needs or request at this time. He denies any home needs. Per multidisciplinary discharge planning meeting patient is scheduled for a bronchoscopy tomorrow. When medically stable he will be discharged to home.
[2019-03-06 12:00] VITALS: BP 130/73
[2019-03-06 16:00] VITALS: BP 122/63
[2019-03-06 20:00] VITALS: BP 130/88
[2019-03-07] VITALS: BP 148/78
[2019-03-07 06:35] LABS: HEMATOCRIT 36.8 % (42.0-52.0); HEMOGLOBIN 12.2 g/dl (14.0-18.0); MEAN CELL VOLUME 98.9 fl (80.0-94.0); MEAN CORPUSCULAR HGB 32.8 pg (27.0-31.0); MEAN CORPUSCULAR HGB CONC 33.2 g/dl (33.0-37.0); MEAN PLATELET VOLUME 10.6 fl (9.6-12.3); PLATELET COUNT AUTOMATED 267 10*3/uL (130-400); RED BLOOD COUNT 3.72 10*6/uL (4.50-5.90); RED CELL DISTRI WIDTH 13.9 % (0-14.5); WHITE BLOOD COUNT 11.5 10*3/uL (4.8-10.8)
[2019-03-07 06:53] LABS: ALBUMIN 3.2 gm/dl (3.1-4.5); ALKALINE PHOSPHATASE 66 U/L (45-117); BUN 28 mg/dl (7-24); CHLORIDE 107 mmol/L (98-107); CREATININE 0.95 mg/dL (0.70-1.30); POTASSIUM 4.4 mmol/L (3.5-5.1); SGOT/AST 15 IU/L (3-35); SGPT/ALT 22 U/L (12-78); SODIUM 139 mmol/L (136-145); TOTAL PROTEIN 6.7 gm/dL (6.4-8.2)
--- NOTE | 2019-03-07 07:30 | NUR ---
RESTING IN BED. RESP-EASY AND REGULAR. PT GOING TO SURGERY FOR BRONCH.
[2019-03-07 07:53] LABS: ATYPICAL LYMPHS 1 % (0-0); TOTAL CELLS COUNTED 100 #CELLS
[2019-03-07 07:54] LABS: PLATELET SUFFICIENCY NORMAL (NORMAL)
[2019-03-07 08:04] VITALS: BP 122/85
[2019-03-07 08:58] VITALS: BP 143/81
[2019-03-07 09:13] VITALS: BP 186/92
[2019-03-07 09:28] VITALS: BP 162/89
--- NOTE | 2019-03-07 09:55 | NUR ---
PT HAS RETURNED FROM [facility]. PT REQUESTING COFFEE. 4 CUPS OF COFFEE WITH CREAM ORDERED FROM ROOM SERVICE. PT ALSO C/O CUADRA. I IN FORMED PT I WOULD CHECK TO SEE IF HE HAS TYLENOL ORDERED AND IF SO I WILL BRING IT TO HIM.
--- NOTE | 2019-03-07 10:14 | NUR ---
PT FOUND TO BE TROWING THINGS IN HIS ROOM BY DR FERNANDEZ. WHEN DR FERNANDEZ WENT INTO THE ROOM TO SEE THE PT ASKED DR FERNANDEZ "DO YOU HAVE A PROBLEM??" DR FERNANDEZ INFORMED PT THAT THE PT NEEDS TO CALM DOWN. THE PT THEN STATED HE DOSEN'T WANT TO BE HERE. DR FERNANDEZ STATED HE COULD SIGN OUT AMA. THE PT SIS SIGN OUT AMA AFTER HIS HL WAS REMOVED. PT REFUSED THE OFFER OF HIS AM MEDS AND THE TYLENOL HE PREVIOUSLY HAD REQUESTED.
--- NOTE | 2019-03-07 10:38 | NUR ---
DR CASAREZ UPDATED ON PT'S SIGNING AMA BECAUSE DR CASAREZ IS ON SERVICE WITH DR STEVENS. DR CASRAEZ UPDATED THAT THE PT HAD TOLD,JAMIE,HIS NURSE, THAT THE REASON HE WAS SIGNING AMA "IT IS MOSTLY FAMILY RELATED" PT DID HAV A FAMILY MEMBER THAT WALKED OUT AFTER PT STARTED YELLING AND THROWING THINGS IN HIS ROOM. WHEN I ASKED THAT FAMILY MEMBER WHAT WAS GOING ON SHE STATED "HE IS IRATE" THIS FAMILY MEMBER CAME BACK UP THE [place] AFTER PT HAD LEFT AMA AND SHE WAS INFORMED THAT PT IS NOT HERE ANY LONGER.
[2019-03-07] MEDS ORDERED: DOXYCYCLINE100 MG PO (10:58)
[2019-03-07] MEDS ORDERED: PREDNISONE10 MG PO (10:58)
[2019-03-09 11:09] LABS: ACID FAST SPEC PROCESSING Concentration (.)
[2019-04-23 15:10] LABS: ACID FAST CULTURE Negative (.)
== END 2019-03-07 10:38 | disposition left against medical advice (07) | DRG 145 ==
LOC: 5E 16:26
PROVIDERS: Internal Medicine; Internal Medicine Critical Care Medicine; ADMIT Internal Medicine
PROC: 0BC98ZZ Extirpation of Matter from Lingula Bronchus, Via Natural or Artificial Opening Endoscopic (ICD-10-PCS; principal; 2019-03-07)
PROC: 0BC48ZZ Extirpation of Matter from Right Upper Lobe Bronchus, Via Natural or Artificial Opening Endoscopic (ICD-10-PCS; 2019-03-07)
PROC: 0BC88ZZ Extirpation of Matter from Left Upper Lobe Bronchus, Via Natural or Artificial Opening Endoscopic (ICD-10-PCS; 2019-03-07)
PROC: 0BC58ZZ Extirpation of Matter from Right Middle Lobe Bronchus, Via Natural or Artificial Opening Endoscopic (ICD-10-PCS; 2019-03-07)
PROC: 0BC38ZZ Extirpation of Matter from Right Main Bronchus, Via Natural or Artificial Opening Endoscopic (ICD-10-PCS; 2019-03-07)
PROC: 0BC78ZZ Extirpation of Matter from Left Main Bronchus, Via Natural or Artificial Opening Endoscopic (ICD-10-PCS; 2019-03-07)
PROC: 0BC68ZZ Extirpation of Matter from Right Lower Lobe Bronchus, Via Natural or Artificial Opening Endoscopic (ICD-10-PCS; 2019-03-07)
PROC: 0BCB8ZZ Extirpation of Matter from Left Lower Lobe Bronchus, Via Natural or Artificial Opening Endoscopic (ICD-10-PCS; 2019-03-07)
PROC: 0BC18ZZ Extirpation of Matter from Trachea, Via Natural or Artificial Opening Endoscopic (ICD-10-PCS; 2019-03-07)
DX: J20.9 Acute bronchitis, unspecified (principal); J43.9 Emphysema, unspecified; D53.9 Nutritional anemia, unspecified; R73.9 Hyperglycemia, unspecified; E87.2 Acidosis; E87.8 Other disorders of electrolyte and fluid balance, not elsewhere classified; E78.5 Hyperlipidemia, unspecified; M48.00 Spinal stenosis, site unspecified; I10 Essential (primary) hypertension; E43 Unspecified severe protein-calorie malnutrition; F41.9 Anxiety disorder, unspecified; E55.9 Vitamin D deficiency, unspecified; Z53.29 Procedure and treatment not carried out because of patient's decision for other reasons; R59.0 Localized enlarged lymph nodes; I25.10 Atherosclerotic heart disease of native coronary artery without angina pectoris; X58.XXXA Exposure to other specified factors, initial encounter; T17.590A Other foreign object in bronchus causing asphyxiation, initial encounter; Y93.89 Activity, other specified; Y92.89 Other specified places as the place of occurrence of the external cause; Y99.8 Other external cause status; Z87.891 Personal history of nicotine dependence; Z80.8 Family history of malignant neoplasm of other organs or systems; I25.2 Old myocardial infarction; Z98.1 Arthrodesis status; Z82.49 Family history of ischemic heart disease and other diseases of the circulatory system; Z83.3 Family history of diabetes mellitus; Z88.8 Allergy status to other drugs, medicaments and biological substances; Z79.82 Long term (current) use of aspirin; Z79.899 Other long term (current) drug therapy; Z68.1 Body mass index [BMI] 19.9 or less, adult

== ENCOUNTER → 2019-04-15 | Outpatient (CLI) | payer OTHER ==
[~2019-04-15] MED LIST changes: +ASPIRIN ADULT L81 M1 PO; +DOXYCYCLINE100 MG PO; +LOPRESSOR25 MG PO
== END | disposition home or self-care (01) ==
LOC: RAD 12:38
DX: M50.322 Other cervical disc degeneration at C5-C6 level (principal)

== ENCOUNTER 2019-05-29 15:26 | Emergency (ER) | payer OTHER ==
[~2019-05-29] VITALS: Ht 177.8 cm; Wt 53.1 kg
== END 2019-05-29 19:10 | disposition left against medical advice (07) ==
LOC: ED 15:26
DX: R51 Headache (principal); I10 Essential (primary) hypertension; J44.9 Chronic obstructive pulmonary disease, unspecified; I25.2 Old myocardial infarction; I48.91 Unspecified atrial fibrillation; Z79.899 Other long term (current) drug therapy; Z79.82 Long term (current) use of aspirin; Z87.891 Personal history of nicotine dependence

== ENCOUNTER → 2019-06-27 | Outpatient (CLI) | payer OTHER ==
[2019-06-27 14:27] LABS: CREATININE 1.24 mg/dL (0.70-1.30)
== END | disposition home or self-care (01) ==
LOC: LAB 14:04
PROVIDERS: Radiology Diagnostic Radiology
DX: N28.89 Other specified disorders of kidney and ureter (principal)

== ENCOUNTER → 2019-06-30 | Outpatient (CLI) | payer OTHER | END | disposition home or self-care (01) | LOC: CT 00:06 | DX: K76.89 Other specified diseases of liver (principal); J98.4 Other disorders of lung; N28.89 Other specified disorders of kidney and ureter ==

== ENCOUNTER → 2019-10-17 | Outpatient (CLI) | payer OTHER | END | disposition home or self-care (01) | LOC: RAD 11:11 | DX: J44.1 Chronic obstructive pulmonary disease with (acute) exacerbation (principal) ==

== ENCOUNTER → 2019-11-07 | Outpatient (CLI) | payer OTHER ==
[2019-11-07 16:21] LABS: BASO % 0.4 % (0.0-1.0); EOS # 0.2 10*3/uL (0.0-0.4); EOS % 2.1 % (1.0-4.0); HEMATOCRIT 45.7 % (42.0-52.0); LYMPH % 36.9 % (27.0-41.0); MEAN CELL VOLUME 93.5 fl (80.0-94.0); MEAN CORPUSCULAR HGB 30.5 pg (27.0-31.0); MEAN CORPUSCULAR HGB CONC 32.6 g/dl (33.0-37.0); MEAN PLATELET VOLUME 9.1 fl (9.6-12.3); MONO # 0.8 10*3/uL (0.1-1.0); MONO % 9.8 % (3.0-9.0); NEUT # 4.1 10*3/uL (2.3-7.9); NEUT % 50.7 % (47.0-73.0); PLATELET COUNT AUTOMATED 280 10*3/uL (130-400); RED BLOOD COUNT 4.89 10*6/uL (4.50-5.90); RED CELL DISTRI WIDTH 14.6 % (0-14.5); WHITE BLOOD COUNT 8.1 10*3/uL (4.8-10.8)
== END | disposition home or self-care (01) ==
LOC: LAB 16:06
PROVIDERS: Internal Medicine
DX: R07.81 Pleurodynia (principal)

== ENCOUNTER → 2019-11-26 | Outpatient (CLI) | payer OTHER ==
--- NOTE | 2019-11-26 08:10 | NUR ---
pt did 6 minutes of walk on room air. also wearing a mask. sao2 was 97 to start with a heart rate of 95. pt walked up and down hallway for 6 minutes at a decent pace. states he gets winded but sao2 never dropped below 94% and was back to 97% at the end of the walk. heart rate went to 84bpm but also came back up to 97bpm at the end of test Does no require oxygen
== END | disposition home or self-care (01) ==
LOC: CP 08:09
DX: J44.1 Chronic obstructive pulmonary disease with (acute) exacerbation (principal)

== ENCOUNTER → 2020-02-24 | Outpatient (CLI) | payer OTHER | END | disposition home or self-care (01) | LOC: RAD 13:07 | PROVIDERS: ATTEND Internal Medicine | DX: M50.122 Cervical disc disorder at C5-C6 level with radiculopathy (principal); M43.22 Fusion of spine, cervical region; M48.02 Spinal stenosis, cervical region; M25.78 Osteophyte, vertebrae ==

== ENCOUNTER 2020-03-25 21:45 | Emergency (ER) | payer OTHER ==
[~2020-03-25] VITALS: Ht 177.8 cm; Wt 53.1 kg
== END 2020-03-26 00:15 | disposition home or self-care (01) ==
LOC: ED 21:45
DX: S46.912A Strain of unspecified muscle, fascia and tendon at shoulder and upper arm level, left arm, initial encounter (principal); J44.9 Chronic obstructive pulmonary disease, unspecified; I10 Essential (primary) hypertension; I25.2 Old myocardial infarction; E78.00 Pure hypercholesterolemia, unspecified; I48.91 Unspecified atrial fibrillation; F17.200 Nicotine dependence, unspecified, uncomplicated; Z79.899 Other long term (current) drug therapy; Z79.82 Long term (current) use of aspirin; X58.XXXA Exposure to other specified factors, initial encounter; Y93.89 Activity, other specified; Y92.89 Other specified places as the place of occurrence of the external cause; Y99.8 Other external cause status

== ENCOUNTER 2020-08-09 12:42 | Emergency (ER) | payer OTHER ==
[~2020-08-09] VITALS: Ht 177.8 cm; Wt 52.2 kg
[2020-08-09] MEDS ORDERED: NAPROSYN500 MG PO (14:08)
[2020-08-09] MEDS ORDERED: ROBAXIN-750750 MG PO (14:08)
== END 2020-08-09 14:10 | disposition home or self-care (01) ==
LOC: ED 12:42
DX: M79.605 Pain in left leg (principal); F17.200 Nicotine dependence, unspecified, uncomplicated; Z98.890 Other specified postprocedural states; Z79.82 Long term (current) use of aspirin; Z79.899 Other long term (current) drug therapy; Z88.8 Allergy status to other drugs, medicaments and biological substances

== ENCOUNTER → 2020-10-12 | Outpatient (CLI) | payer OTHER ==
[~2020-10-12] MED LIST changes: +ROBAXIN-750750 MG PO
== END | disposition home or self-care (01) ==
LOC: RAD 16:11
PROVIDERS: ATTEND Orthopaedic Surgery
DX: M19.011 Primary osteoarthritis, right shoulder (principal); M25.711 Osteophyte, right shoulder

== ENCOUNTER 2020-12-08 10:43 | Emergency (ER) | payer MEDICARE, MEDICAID ==
[~2020-12-08] VITALS: Wt 50.3 kg
[2020-12-08 12:00] LABS: BASO # 0.1 10*3/uL (0.0-0.1); BASO % 0.6 % (0.0-1.0); EOS # 0.1 10*3/uL (0.0-0.4); EOS % 1.3 % (1.0-4.0); HEMATOCRIT 45.5 % (42.0-52.0); LYMPH # 2.2 10*3/uL (1.3-4.4); LYMPH % 28.5 % (27.0-41.0); MEAN CORPUSCULAR HGB 30.7 pg (27.0-31.0); MONO # 0.8 10*3/uL (0.1-1.0); MONO % 10.2 % (3.0-9.0); NEUT # 4.6 10*3/uL (2.3-7.9); NEUT % 59.3 % (47.0-73.0); PLATELET COUNT AUTOMATED 247 10*3/uL (130-400); RED BLOOD COUNT 4.89 10*6/uL (4.50-5.90); RED CELL DISTRI WIDTH 13.9 % (0-14.5); WHITE BLOOD COUNT 7.8 10*3/uL (4.8-10.8)
[2020-12-08 12:14] LABS: ALBUMIN 3.6 gm/dl (3.1-4.5); ALKALINE PHOSPHATASE 89 U/L (45-117); BUN 17 mg/dl (7-24); CHLORIDE 109 mmol/L (98-107); CREATININE 0.86 mg/dL (0.70-1.30); POTASSIUM 4.2 mmol/L (3.5-5.1); SGOT/AST 14 IU/L (3-35); SGPT/ALT 16 U/L (12-78); SODIUM 137 mmol/L (136-145); TOTAL PROTEIN 7.3 gm/dL (6.4-8.2)
[2020-12-08 12:16] LABS: FREE T4 0.92 ng/dl (0.76-1.46)
== END 2020-12-08 15:03 | disposition home or self-care (01) ==
LOC: ED 10:43
PROVIDERS: Physician Assistant
DX: M54.2 Cervicalgia (principal); R22.1 Localized swelling, mass and lump, neck; J44.9 Chronic obstructive pulmonary disease, unspecified; F17.200 Nicotine dependence, unspecified, uncomplicated; Z79.899 Other long term (current) drug therapy; Z79.2 Long term (current) use of antibiotics; Z79.82 Long term (current) use of aspirin; Z98.890 Other specified postprocedural states

== ENCOUNTER → 2021-05-19 | Outpatient (CLI) | payer MEDICARE, MEDICAID | LOC: RAD 09:56 | PROVIDERS: ATTEND Internal Medicine | DX: J44.9 Chronic obstructive pulmonary disease, unspecified (principal); R07.81 Pleurodynia ==

== ENCOUNTER → 2021-08-11 | Outpatient (CLI) | payer MEDICARE, MEDICAID | END | disposition home or self-care (01) | LOC: US 02:34 | PROVIDERS: ATTEND Internal Medicine | DX: I70.202 Unspecified atherosclerosis of native arteries of extremities, left leg (principal); I10 Essential (primary) hypertension; M51.37 Other intervertebral disc degeneration, lumbosacral region; M79.605 Pain in left leg; I73.9 Peripheral vascular disease, unspecified ==

== ENCOUNTER 2021-10-14 21:13 | Emergency (ER) | payer MEDICARE, MEDICAID, OTHER ==
[~2021-10-14] VITALS: Wt 49.0 kg
[2021-10-14] MEDS ORDERED: CITALOPRAM20 MG PO (21:39)
[2021-10-14] MEDS ORDERED: BUDESONIDE-FO10.2 G1 INH (21:39)
[2021-10-14] MEDS ORDERED: NITROGLYCERIN0.4 MG SL (21:40)
[2021-10-14] MEDS ORDERED: TAMSULOSIN HCL0.4 MG PO (21:40)
[2021-10-14 22:24] LABS: BASO % 0.4 % (0.0-1.0); EOS # 0.2 10*3/uL (0.0-0.4); HEMATOCRIT 36.8 % (42.0-52.0); LYMPH # 1.9 10*3/uL (1.3-4.4); LYMPH % 21.1 % (27.0-41.0); MEAN CELL VOLUME 93.4 fl (80.0-94.0); MEAN CORPUSCULAR HGB 31.5 pg (27.0-31.0); MEAN CORPUSCULAR HGB CONC 33.7 g/dl (33.0-37.0); MEAN PLATELET VOLUME 9.5 fl (9.6-12.3); NEUT # 5.9 10*3/uL (2.3-7.9); NEUT % 65.2 % (47.0-73.0); PLATELET COUNT AUTOMATED 182 10*3/uL (130-400); RED BLOOD COUNT 3.94 10*6/uL (4.50-5.90); RED CELL DISTRI WIDTH 13.6 % (0-14.5); WHITE BLOOD COUNT 9.1 10*3/uL (4.8-10.8)
[2021-10-14 22:38] LABS: INTERNATIONAL NORM RATIO 0.9 (2.0-3.5)
[2021-10-14 22:43] LABS: ALKALINE PHOSPHATASE 67 U/L (45-117); BUN 20 mg/dl (7-24); CHLORIDE 107 mmol/L (98-107); CREATININE 0.82 mg/dL (0.70-1.30); POTASSIUM 4.3 mmol/L (3.5-5.1); SGOT/AST 11 IU/L (3-35); SGPT/ALT 15 U/L (12-78); SODIUM 139 mmol/L (136-145); TOTAL PROTEIN 6.5 gm/dL (6.4-8.2)
== END 2021-10-15 01:20 | disposition left against medical advice (07) ==
LOC: ED 21:13
PROVIDERS: Emergency Medicine
DX: M79.605 Pain in left leg (principal); Z79.899 Other long term (current) drug therapy; Z98.890 Other specified postprocedural states; F17.200 Nicotine dependence, unspecified, uncomplicated

== ENCOUNTER 2022-01-29 13:44 | Emergency (ER) | payer OTHER, MEDICAID ==
[~2022-01-29] VITALS: Ht 177.8 cm; Wt 50.3 kg
[~2022-01-29 13:44] MED LIST changes: +BUDESONIDE-FO10.2 G1 INH; +NITROGLYCERIN0.4 MG SL; +TAMSULOSIN HCL0.4 MG PO
[2022-01-29 15:31] LABS: BASO % 0.3 % (0.0-1.0); EOS # 0.2 10*3/uL (0.0-0.4); EOS % 1.9 % (1.0-4.0); HEMATOCRIT 41.4 % (42.0-52.0); LYMPH # 2.7 10*3/uL (1.3-4.4); LYMPH % 29.4 % (27.0-41.0); MEAN CELL VOLUME 94.3 fl (80.0-94.0); MEAN CORPUSCULAR HGB 31.2 pg (27.0-31.0); MEAN CORPUSCULAR HGB CONC 33.1 g/dl (33.0-37.0); MEAN PLATELET VOLUME 9.3 fl (9.6-12.3); MONO % 10.4 % (3.0-9.0); NEUT # 5.3 10*3/uL (2.3-7.9); NEUT % 57.9 % (47.0-73.0); PLATELET COUNT AUTOMATED 229 10*3/uL (130-400); RED BLOOD COUNT 4.39 10*6/uL (4.50-5.90); RED CELL DISTRI WIDTH 13.6 % (0-14.5); WHITE BLOOD COUNT 9.1 10*3/uL (4.8-10.8)
[2022-01-29 15:42] LABS: ACT PARTIAL THROMBO TIME 26.7 SECONDS (20.0-32.1)
[2022-01-29 15:47] LABS: ALKALINE PHOSPHATASE 91 U/L (45-117); BUN 29 mg/dl (7-24); CHLORIDE 108 mmol/L (98-107); CREATININE 1.03 mg/dL (0.70-1.30); POTASSIUM 4.6 mmol/L (3.5-5.1); SGOT/AST 13 IU/L (3-35); SGPT/ALT 15 U/L (12-78); SODIUM 139 mmol/L (136-145); TOTAL PROTEIN 7.3 gm/dL (6.4-8.2)
[2022-01-29 15:50] LABS: ETHYL ALCOHOL < 3.0 mg/dl (<3)
== END 2022-01-29 19:49 | disposition left against medical advice (07) ==
LOC: ED 13:44
PROVIDERS: Emergency Medicine
DX: R55 Syncope and collapse (principal); R41.0 Disorientation, unspecified; R51.9 Headache, unspecified; R63.4 Abnormal weight loss; F41.9 Anxiety disorder, unspecified; I25.10 Atherosclerotic heart disease of native coronary artery without angina pectoris; J44.9 Chronic obstructive pulmonary disease, unspecified; E78.5 Hyperlipidemia, unspecified; I10 Essential (primary) hypertension; F17.200 Nicotine dependence, unspecified, uncomplicated; Z88.8 Allergy status to other drugs, medicaments and biological substances; Z79.899 Other long term (current) drug therapy; Z79.82 Long term (current) use of aspirin; Z98.890 Other specified postprocedural states

== ENCOUNTER → 2022-01-30 | Outpatient (CLI) | payer OTHER, MEDICAID ==
[2022-02-02 12:07] LABS: CREATININE, RANDOM URINE 68.8 mg/dL (Not Estab.); METANEPH-CREAT RATIO 0.6 (0.0-1.0)
== END | disposition home or self-care (01) ==
LOC: LAB 15:58
PROVIDERS: ATTEND Internal Medicine
DX: I10 Essential (primary) hypertension (principal); Z86.018 Personal history of other benign neoplasm

== ENCOUNTER → 2022-03-17 | Outpatient (CLI) | payer OTHER, MEDICAID ==
[2022-03-17 08:00] LABS: BASO # 0.1 10*3/uL (0.0-0.1); BASO % 0.6 % (0.0-1.0); EOS # 0.1 10*3/uL (0.0-0.4); EOS % 1.3 % (1.0-4.0); HEMATOCRIT 42.7 % (42.0-52.0); LYMPH # 1.7 10*3/uL (1.3-4.4); LYMPH % 20.2 % (27.0-41.0); MEAN CORPUSCULAR HGB 30.9 pg (27.0-31.0); MEAN CORPUSCULAR HGB CONC 33.3 g/dl (33.0-37.0); MEAN PLATELET VOLUME 8.9 fl (9.6-12.3); MONO # 0.8 10*3/uL (0.1-1.0); MONO % 9.6 % (3.0-9.0); NEUT # 5.7 10*3/uL (2.3-7.9); NEUT % 68.1 % (47.0-73.0); PLATELET COUNT AUTOMATED 223 10*3/uL (130-400); RED BLOOD COUNT 4.59 10*6/uL (4.50-5.90); RED CELL DISTRI WIDTH 13.7 % (0-14.5); WHITE BLOOD COUNT 8.4 10*3/uL (4.8-10.8)
[2022-03-17 08:16] LABS: BUN 19 mg/dl (7-24); CHLORIDE 109 mmol/L (98-107); CREATININE 0.96 mg/dL (0.70-1.30); POTASSIUM 4.7 mmol/L (3.5-5.1); SODIUM 141 mmol/L (136-145)
== END ==
LOC: LAB 07:40
PROVIDERS: ATTEND Orthopaedic Surgery
DX: Z01.812 Encounter for preprocedural laboratory examination (principal); D68.8 Other specified coagulation defects; R73.03 Prediabetes

== ENCOUNTER → 2022-10-12 | Outpatient (CLI) | payer OTHER, MEDICAID | END | disposition home or self-care (01) | LOC: RAD 16:04 | PROVIDERS: ATTEND Internal Medicine | DX: M17.12 Unilateral primary osteoarthritis, left knee (principal); M25.462 Effusion, left knee ==

== ENCOUNTER → 2022-11-22 | Outpatient (CLI) | payer OTHER, MEDICAID ==
[2022-11-22 09:04] LABS: BASO % 0.4 % (0.0-1.0); EOS # 0.1 10*3/uL (0.0-0.4); EOS % 1.5 % (1.0-4.0); HEMATOCRIT 46.9 % (42.0-52.0); LYMPH # 2.5 10*3/uL (1.3-4.4); LYMPH % 27.6 % (27.0-41.0); MEAN CELL VOLUME 94.2 fl (80.0-94.0); MEAN CORPUSCULAR HGB 31.1 pg (27.0-31.0); MEAN PLATELET VOLUME 9.2 fl (9.6-12.3); MONO % 11.1 % (3.0-9.0); NEUT # 5.3 10*3/uL (2.3-7.9); PLATELET COUNT AUTOMATED 240 10*3/uL (130-400); RED BLOOD COUNT 4.98 10*6/uL (4.50-5.90); RED CELL DISTRI WIDTH 14.1 % (0-14.5); WHITE BLOOD COUNT 9.1 10*3/uL (4.8-10.8)
== END | disposition home or self-care (01) ==
LOC: LAB 08:27
PROVIDERS: ATTEND Orthopaedic Surgery
DX: M00.9 Pyogenic arthritis, unspecified (principal)

== ENCOUNTER → 2022-12-18 | Outpatient (CLI) | payer OTHER, MEDICAID | END | disposition home or self-care (01) | LOC: RAD 17:00 | PROVIDERS: ATTEND Internal Medicine | DX: J44.1 Chronic obstructive pulmonary disease with (acute) exacerbation (principal); Z96.611 Presence of right artificial shoulder joint ==

== ENCOUNTER 2023-01-11 11:09 | Emergency (ER) | payer OTHER, MEDICAID ==
[~2023-01-11] VITALS: Wt 48.1 kg
[2023-01-11 12:50] LABS: BASO % 0.5 % (0.0-1.0); EOS # 0.2 10*3/uL (0.0-0.4); EOS % 2.4 % (1.0-4.0); HEMATOCRIT 46.1 % (42.0-52.0); LYMPH # 2.3 10*3/uL (1.3-4.4); LYMPH % 26.7 % (27.0-41.0); MEAN CELL VOLUME 94.5 fl (80.0-94.0); MEAN CORPUSCULAR HGB 32.2 pg (27.0-31.0); MEAN CORPUSCULAR HGB CONC 34.1 g/dl (33.0-37.0); MEAN PLATELET VOLUME 9.4 fl (9.6-12.3); MONO # 0.8 10*3/uL (0.1-1.0); MONO % 9.5 % (3.0-9.0); NEUT # 5.3 10*3/uL (2.3-7.9); NEUT % 60.7 % (47.0-73.0); PLATELET COUNT AUTOMATED 195 10*3/uL (130-400); RED BLOOD COUNT 4.88 10*6/uL (4.50-5.90); RED CELL DISTRI WIDTH 14.4 % (0-14.5); WHITE BLOOD COUNT 8.7 10*3/uL (4.8-10.8)
[2023-01-11 13:03] LABS: ACT PARTIAL THROMBO TIME 27.1 SECONDS (20.0-32.1)
[2023-01-11 13:12] LABS: ALKALINE PHOSPHATASE 90 U/L (46-116); BUN 14 mg/dl (9-23); CHLORIDE 105 mmol/L (98-107); POTASSIUM 4.2 mmol/L (3.4-5.1); SGPT/ALT 9 U/L (10-49); TOTAL PROTEIN 7.2 gm/dL (6.0-8.0)
== END 2023-01-12 10:37 | disposition short-term general hospital (02) ==
LOC: ED 11:09
PROVIDERS: Physician Assistant Medical
DX: I77.1 Stricture of artery (principal); M79.662 Pain in left lower leg; M25.562 Pain in left knee; I25.10 Atherosclerotic heart disease of native coronary artery without angina pectoris; J44.9 Chronic obstructive pulmonary disease, unspecified; I25.2 Old myocardial infarction; I10 Essential (primary) hypertension; E78.5 Hyperlipidemia, unspecified; F17.200 Nicotine dependence, unspecified, uncomplicated; Z79.899 Other long term (current) drug therapy; Z79.82 Long term (current) use of aspirin; Z98.890 Other specified postprocedural states

== ENCOUNTER 2023-04-07 14:27 | Emergency (ER) | payer OTHER, MEDICAID ==
[~2023-04-07] VITALS: Ht 177.8 cm; Wt 51.7 kg
[2023-04-07] MEDS ORDERED: ELIQUIS2.5 M1 PO (14:55)
[2023-04-07 15:16] LABS: BASO # 0.1 10*3/uL (0.0-0.1); BASO % 0.5 % (0.0-1.0); EOS # 0.2 10*3/uL (0.0-0.4); EOS % 1.6 % (1.0-4.0); HEMATOCRIT 43.8 % (42.0-52.0); LYMPH # 2.4 10*3/uL (1.3-4.4); LYMPH % 23.8 % (27.0-41.0); MEAN CELL VOLUME 94.4 fl (80.0-94.0); MEAN CORPUSCULAR HGB 31.3 pg (27.0-31.0); MEAN CORPUSCULAR HGB CONC 33.1 g/dl (33.0-37.0); MONO # 0.8 10*3/uL (0.1-1.0); MONO % 7.8 % (3.0-9.0); NEUT # 6.7 10*3/uL (2.3-7.9); NEUT % 66.1 % (47.0-73.0); PLATELET COUNT AUTOMATED 291 10*3/uL (130-400); RED BLOOD COUNT 4.64 10*6/uL (4.50-5.90); RED CELL DISTRI WIDTH 13.6 % (0-14.5); WHITE BLOOD COUNT 10.1 10*3/uL (4.8-10.8)
[2023-04-07 15:28] LABS: ACT PARTIAL THROMBO TIME 30.4 SECONDS (20.0-32.1)
[2023-04-07 15:43] LABS: ALKALINE PHOSPHATASE 88 U/L (46-116); BUN 17 mg/dl (9-23); CHLORIDE 109 mmol/L (98-107); POTASSIUM 4.8 mmol/L (3.4-5.1); SGPT/ALT 8 U/L (5-49)
== END 2023-04-07 20:17 | disposition home or self-care (01) ==
LOC: ED 14:27
PROVIDERS: Emergency Medicine
DX: M79.605 Pain in left leg (principal); R20.0 Anesthesia of skin; R20.8 Other disturbances of skin sensation; I10 Essential (primary) hypertension; E78.5 Hyperlipidemia, unspecified; I73.9 Peripheral vascular disease, unspecified; F17.200 Nicotine dependence, unspecified, uncomplicated; Z79.899 Other long term (current) drug therapy; Z79.82 Long term (current) use of aspirin; Z98.890 Other specified postprocedural states

== ENCOUNTER 2023-05-18 17:06 | Emergency (ER) | payer OTHER, MEDICAID ==
[~2023-05-18] VITALS: Ht 177.8 cm; Wt 52.2 kg
[~2023-05-18 17:06] MED LIST changes: +ELIQUIS2.5 M1 PO
[2023-05-18 18:13] LABS: BASO # 0.1 10*3/uL (0.0-0.1); BASO % 0.7 % (0.0-1.0); EOS # 0.2 10*3/uL (0.0-0.4); HEMATOCRIT 44.1 % (42.0-52.0); LYMPH # 2.5 10*3/uL (1.3-4.4); LYMPH % 29.7 % (27.0-41.0); MEAN CELL VOLUME 92.6 fl (80.0-94.0); MEAN CORPUSCULAR HGB 30.3 pg (27.0-31.0); MEAN CORPUSCULAR HGB CONC 32.7 g/dl (33.0-37.0); MEAN PLATELET VOLUME 9.1 fl (9.6-12.3); MONO # 0.9 10*3/uL (0.1-1.0); MONO % 10.8 % (3.0-9.0); NEUT # 4.8 10*3/uL (2.3-7.9); NEUT % 56.7 % (47.0-73.0); PLATELET COUNT AUTOMATED 241 10*3/uL (130-400); RED BLOOD COUNT 4.76 10*6/uL (4.50-5.90); RED CELL DISTRI WIDTH 13.7 % (0-14.5); WHITE BLOOD COUNT 8.5 10*3/uL (4.8-10.8)
[2023-05-18 18:27] LABS: ACT PARTIAL THROMBO TIME 27.4 SECONDS (20.0-32.1)
[2023-05-18 18:37] LABS: ALKALINE PHOSPHATASE 88 U/L (46-116); BUN 19 mg/dl (9-23); CHLORIDE 110 mmol/L (98-107); LIPASE 48 U/L (12-53); POTASSIUM 4.5 mmol/L (3.4-5.1); SGPT/ALT 9 U/L (5-49); TOTAL PROTEIN 6.7 gm/dL (6.0-8.0)
== END 2023-05-18 20:32 | disposition left against medical advice (07) ==
LOC: ED 17:06
PROVIDERS: Emergency Medicine
DX: I70.90 Unspecified atherosclerosis (principal); J44.9 Chronic obstructive pulmonary disease, unspecified; I10 Essential (primary) hypertension; I25.2 Old myocardial infarction; E78.00 Pure hypercholesterolemia, unspecified; Z88.8 Allergy status to other drugs, medicaments and biological substances; Z98.890 Other specified postprocedural states; Z95.5 Presence of coronary angioplasty implant and graft; F17.200 Nicotine dependence, unspecified, uncomplicated

== ENCOUNTER → 2023-07-18 | Outpatient (CLI) | payer OTHER, MEDICAID | END | disposition home or self-care (01) | LOC: RAD 13:11 | PROVIDERS: ATTEND Internal Medicine | DX: J44.9 Chronic obstructive pulmonary disease, unspecified (principal); R07.81 Pleurodynia; J90 Pleural effusion, not elsewhere classified; R06.02 Shortness of breath ==

== ENCOUNTER → 2023-10-29 | Outpatient (CLI) | payer OTHER | LOC: US 12:30 | PROVIDERS: ATTEND Internal Medicine | DX: I70.203 Unspecified atherosclerosis of native arteries of extremities, bilateral legs (principal) ==

== ENCOUNTER 2024-01-07 14:09 | Emergency (ER) | payer OTHER ==
[~2024-01-07] VITALS: Ht 177.8 cm; Wt 53.5 kg
[2024-01-07] MEDS ORDERED: CLOPIDOGREL75 MG PO (14:16)
[2024-01-07] MEDS ORDERED: XARE20MG PO (14:19)
[2024-01-07] MEDS ORDERED: ATORVASTATIN CA20 M1 PO (14:21)
[2024-01-07] MEDS ORDERED: OXYCODONE-ACET1 EAC3 PO (14:22)
[2024-01-07] MEDS ORDERED: PREGABALIN200 MG PO (14:22)
[2024-01-07 14:44] LABS: BASO # 0.1 10*3/uL (0.0-0.1); BASO % 0.6 % (0.0-1.0); EOS # 0.2 10*3/uL (0.0-0.4); EOS % 1.9 % (1.0-4.0); HEMATOCRIT 44.6 % (42.0-52.0); LYMPH # 2.6 10*3/uL (1.3-4.4); MEAN CELL VOLUME 87.8 fl (80.0-94.0); MEAN CORPUSCULAR HGB 28.9 pg (27.0-31.0); MEAN PLATELET VOLUME 9.5 fl (9.6-12.3); MONO % 9.1 % (3.0-9.0); NEUT # 6.7 10*3/uL (2.3-7.9); NEUT % 63.1 % (47.0-73.0); PLATELET COUNT AUTOMATED 296 10*3/uL (130-400); RED BLOOD COUNT 5.08 10*6/uL (4.50-5.90); RED CELL DISTRI WIDTH 16.7 % (0-14.5); WHITE BLOOD COUNT 10.6 10*3/uL (4.8-10.8)
[2024-01-07 14:55] LABS: BUN 16 mg/dl (9-23); CHLORIDE 108 mmol/L (98-107); LIPASE 54 U/L (12-53); POTASSIUM 4.2 mmol/L (3.4-5.1)
[2024-01-07 15:10] LABS: ACT PARTIAL THROMBO TIME 29.6 SECONDS (20.0-32.1)
[2024-01-07] MEDS ORDERED: SODIUM CHLORIDE 0.9% 100 ML BAG IV ONE (16:00)
[2024-01-07] MEDS ORDERED: IOHEXOL 350 MG/ML 100 ML VIAL IV ONE (16:00)
== END 2024-01-07 17:59 | disposition home or self-care (01) ==
LOC: ED 14:09
PROVIDERS: Physician Assistant Medical
DX: R91.1 Solitary pulmonary nodule (principal); R07.89 Other chest pain; I10 Essential (primary) hypertension; E78.5 Hyperlipidemia, unspecified; J44.9 Chronic obstructive pulmonary disease, unspecified; I25.2 Old myocardial infarction; E78.00 Pure hypercholesterolemia, unspecified; I48.91 Unspecified atrial fibrillation; F17.200 Nicotine dependence, unspecified, uncomplicated; Z86.718 Personal history of other venous thrombosis and embolism; Z88.8 Allergy status to other drugs, medicaments and biological substances; Z98.890 Other specified postprocedural states; Z95.5 Presence of coronary angioplasty implant and graft

== ENCOUNTER → 2024-10-02 | Outpatient (CLI) | payer OTHER ==
[~2024-10-02] MED LIST changes: +ATORVASTATIN CA20 M1 PO; +CLOPIDOGREL75 MG PO; +OXYCODONE-ACET1 EAC3 PO; +PREGABALIN200 MG PO; +XARE20MG PO
== END | disposition home or self-care (01) ==
LOC: RAD 14:42
PROVIDERS: ATTEND Internal Medicine
DX: M25.511 Pain in right shoulder (principal); Z96.611 Presence of right artificial shoulder joint